=== PATIENT | male | born 1945 | race Caucasian/White ===

== ENCOUNTER 2018-08-23 08:31 | Inpatient (IN) | payer MEDICARE, OTHER ==
--- NOTE | 2018-08-23 08:44 | ED ---
Abdominal Pain/Male - HPI Summary HPI Summary: Pt. is a 72 y.o male who presents to the ER for upper abd. pain x several weeks. Pt. notes pain is worse after eating spicy foods. Pt. states pain increased yesterday and he had a few episodes of vomiting yesterday. Pt. states pain eventually lessened. Pt. denies CP, SOB, diarrhea, constipation, urinary sxs, fever. Past his of HDL, HTN. Sxs are moderate in severity. No current modifying factors. - History of Current Complaint Chief Complaint: EDAbdPain Stated Complaint: RT SIDED ABD PAIN/CHILLS/VOMITING PER PT Time Seen by Provider: 08/23/18 08:39 Hx Obtained From: Patient Pain Intensity: 5 - Allergies/Home Medications Allergies/Adverse Reactions: Allergies Allergy/AdvReac Type Severity Reaction Status Date / Time No Known Allergies Allergy Verified 08/23/18 08:36 Home Medications: Home Medications Omeprazole 20 mg PO DAILY 08/23/18 [History Confirmed 08/23/18] PMH/Surg Hx/FS Hx/Imm Hx Previously Healthy: Yes Endocrine/Hematology History: Denies: Hx Diabetes Cardiovascular History: Reports: Hx Hypertension - ON MEDS Denies: Hx Pacemaker/ICD History: Denies: Hx Renal Disease Sensory History: Denies: Hx Hearing Aid Psychiatric History: Denies: Hx Panic Disorder - Immunization History Date of Tetanus Vaccine: PT STATES UNSURE Date of Influenza Vaccine: NONE Infectious Disease History: No Infectious Disease History: Denies: Traveled Outside the [place] in Last 30 Days - Family History Known Family History: Positive: Non-Contributory - Social History Occupation: Retired Lives: With Family Alcohol Use: Rare Substance Use Type: Reports: None Review of Systems Constitutional: Negative Negative: Fever, Chills Eyes: Negative ENT: Negative Cardiovascular: Negative Negative: Palpitations, Chest Pain Respiratory: Negative Negative: Shortness Of Breath, Cough Positive: Abdominal Pain, Vomiting, Nausea. Negative: Diarrhea Genitourinary: Negative Neurological: Negative All Other Systems Reviewed And Are Negative: Yes Physical Exam Triage Information Reviewed: Yes Vital Signs On Initial Exam: Initial Vitals Temp Pulse Resp BP Pulse Ox 98.2 F 83 16 138/73 96 08/23/18 08:34 08/23/18 08:34 08/23/18 08:34 08/23/18 08:34 08/23/18 08:34 Vital Signs Reviewed: Yes Appearance: Positive: Well-Appearing - Pt. sitting up in bed in NAD. present. Skin: Positive: Warm, Dry Head/Face: Positive: Normal Head/Face Inspection Eyes: Positive: Normal, EOMI, RICHARD Neck: Positive: Supple Respiratory/Lung Sounds: Positive: Clear to Auscultation, Breath Sounds Present Cardiovascular: Positive: Normal, RRR Abdomen Description: Positive: Other: - Abd. is soft soft with diffuse tenderness in all quadrants. Majority of pain to RUQ. Neurological: Positive: Normal, CN Intact II-III Psychiatric: Positive: Affect/Mood Appropriate Diagnostics - Vital Signs Vital Signs Temp Pulse Resp BP Pulse Ox 08/23/18 08:34 98.2 F 83 16 138/73 96 - Laboratory Result Diagrams: 08/23/18 09:06 08/23/18 09:06 Lab Statement: Any lab studies that have been ordered have been reviewed, and results considered in the medical decision making process. Abdominal Pain Male Course/Dx - Course Course Of Treatment: Pt. presenting with upper abd. pain. Afebrile with stable VS. He does have R and L LQ pain as well. Will obtain GB u/s and ct abd./pevlis for further evaluation. Pt. declines pain medication at this time. ECG done at 0857 shows a sinus rhythm of 75bpm, normal axis, normal axis, no STEMI. U/S reading per radiology: IMPRESSION: 1. CHOLELITHIASIS WITHOUT EVIDENCE FOR ACUTE CHOLECYSTITIS. 2. DILATED COMMON BILE DUCT, THIS CAN BE FURTHER EVALUATED WITH AN MRCP STUDY. 3. FINDINGS SUGGESTIVE OF FATTY INFILTRATION OF THE LIVER. CBC elevated WBC of 12. Bilirubin elevated at 4.2, AST 134, ALT 167 , CRP 104. CT abd./pelvis was cancelled. GI paged at [phone]. [phone]: GI page again and case discussed with GI, Dr. Jones, who recommends admission, MRCP, and will proceed with ERCP if indicated. Case discussed with hospitalist, Dr. Chan, who accepts pt. to her service. Pt. given a second liter of NS and Zosyn. - Diagnoses Differential Diagnosis/HQI/PQRI: Gall Bladder Disease, Hepatitis, Ischemic Bowel , Pancreatitis, Peptic Ulcer Disease Provider Diagnoses: Choledocholithiasis Discharge - Sign-Out/Discharge Documenting (check all that apply): Patient Departure Patient Received Moderate/Deep Sedation with Procedure: No - Discharge Plan Condition: Stable Disposition: ADMITTED TO [facility] Referrals: Keny Esquivel MD [Primary Care Provider] - - Billing Disposition and Condition Condition: STABLE Disposition: Admitted to [facility]
--- OUTSIDE RECORDS SUMMARY | 2018-08-23 08:48 | XMS REPORT | Continuity of Care Document ---
:1945 External Reference #:[id number] Author Name Keny Esquivel M.D. Address [address] [place] [address] Care Team Providers Name Role Phone Keny Esquivel M.D. 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 [place] [address] Effective: 2008 Policy Number: [id number] Marcy Wang Jose PayID: [id number] [address] [place] [address] Problems Active Problems Provider Date Essential hypertension Keny Esquivel M.D. Onset: 08/26/2011 Hyperlipidemia Keny Esquivel M.D. Onset: 08/26/2011 Impaired fasting glycaemia Keny Esquivel M.D. Onset: 08/26/2011 Family History Date Family Member(s) Observation Comments Father Black Lung Disease, Smoker Father due to Cancer, () Lung Father Diabetes Mother Hypertension Mother due to "Old Age" () Mother Cancer, throat Children 2 First Daughter Non Contributory Second Daughter Non Contributory Siblings 9 : (age 17 First Brother due to Logging Years) Accident First Sister due to At () - after a Age 6 Months, Cause febrile illness Unknown Second Sister Diabetes Grandchildren 4 Paternal Grandfather due to COPD () Paternal Grandmother Unknown : (age 80 Maternal Grandfather due to [place] Years) Maternal Grandmother Alzheimer's Disease : (age 94 Maternal Grandmother due to Unknown Years) Causes Social History Type Date Description Comments Sex Unknown Order Oldest of 10 Marital Status Lives With Spouse Diet Healthy, Well Balanced Sleep Typically sleeps 7 hours a night Smoke-Free Home is smoke-free Pets 2 cats Pets 1 dog 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 Work Status Currently Working Hand Dominance Right-handed Tobacco Use Start: Unknown Never Smoked Cigarettes ETOH Use Rarely consumes alcohol ETOH Use Rarely consumes wine Recreational Drug Use Never Used Drugs Exercise Type/Frequency Walks daily. About a Sometimes every other mile a day. day. Allergies, Adverse Reactions, Alerts Description No Known Drug Allergies Medications Active Medications SIG Qnty Indications Ordering Provider Date Omeprazole 1 by mouth every 30caps R10.11 Keny Esquivel M.D. 07/29/2018 20mg day Capsules Finasteralicia take 1 tablet by Unknown 11/22/2015 5mg Tablets mouth one time daily Niaspan 1 twice a day 180tabs E78.5 Keny Esquivel M.D. 05/15/2009 500mg Tablets ER Fenofibrate 1 by mouth every 90tabs E78.5 Keny Esquivel M.D. 08/09/2008 160mg day Tablets Lisinopril 1 by mouth every 90tabs I10 Keny Esquivel M.D. 05/12/2008 20mg Tablets day Aspirin 1 PO qd Keny Esquivel M.D. 11/19/2007 81mg Chewtabs Atenolol take one tablet 90tabs I10 Keny Esquivel M.D. 09/06/2001 25mg Tablets by mouth daily History Medications Vitamin D-3 1 by mouth every Unknown 12/13/2013 - 5000Unit day 02/04/2018 Tablets Lisinopril 1 po qd 90tabs 401.9 Keny Esquivel M.D. 04/26/2004 - 10mg 05/12/2008 Tablets Viagra 1/2-1 tab prior 20tabs Camilla Sabillon, 04/18/2003 - 50mg Tablets to sexual M.D. 04/09/2005 activity Prevacid one hs 30caps Lloyd Sawyer, 11/28/2002 - 30mg M.D. 04/27/2004 Capsules Immunizations CPT Code Status Date Vaccine Lot # [id number] Given 06/21/2015 Prevnar-13 Pneumococcal Conjugate Vaccine [id number] Given 06/21/2015 Influenza Vaccine High Dose PF [id number] Given 08/30/2013 Influenza Virus Vaccine, Quadrivalent, 3 Yr > Quad, Preserv Free [id number] Given 06/18/2011 Zoster Vaccine [id number] Given 04/23/2010 Tdap (Adacel) 98986 Given 05/12/2008 Pneumovax 23 (PPSV23) 65+ years or high risk 2 to [id number] 64 year old 48855 Refused 07/29/2018 Influenza Virus Vaccine, Quadrivalent, 3 Yr > Quad , Preserv Free [id number] Refused 12/25/2015 Influenza Virus Vaccine, Quadrivalent, 3 Yr > Quad , Preserv Free Vital Signs Date Vital Result Comment 07/29/2018 9:45am Weight 183.00 lb Weight 83.009 kg BP Systolic 118 mmHg BP Diastolic 58 mmHg Heart Rate 58 /min Body Temperature 98.3 F Respiratory Rate 16 /min 02/04/2018 9:30am Weight 177.00 lb Weight 80.287 kg BP Systolic 128 mmHg BP Diastolic 82 mmHg Heart Rate 54 /min Body Temperature 97.4 F Respiratory Rate 16 /min Height 68.5 inches 5'8.50" BMI (Body Mass Index) 26.5 kg/m2 O2 % BldC Oximetry 97 % 12/31/2016 3:58pm Weight 175.00 lb Weight 79.380 kg BP Systolic 100 mmHg BP Diastolic 65 mmHg Heart Rate 76 /min Height 67.5 inches 5'7.50" BMI (Body Mass Index) 27.0 kg/m2 12/25/2015 1:59pm Weight 179.00 lb Weight 81.194 kg BP Systolic 115 mmHg BP Diastolic 60 mmHg Heart Rate 68 /min 06/21/2015 10:55am Weight 183.00 lb Weight 83.009 kg BP Systolic 112 mmHg BP Diastolic 66 mmHg Heart Rate 64 /min Height 68 inches 5'8" BMI (Body Mass Index) 27.8 kg/m2 07/06/2014 10:37am Weight 187.00 lb Weight 84.823 kg BP Systolic 120 mmHg BP Diastolic 64 mmHg Heart Rate 66 /min Body Temperature 97.9 F Respiratory Rate 16 /min O2 % BldC Oximetry 98 % 12/20/2013 10:25am Weight 182.00 lb Weight 82.555 kg BP Systolic 128 mmHg BP Diastolic 80 mmHg Heart Rate 60 /min Height 68.25 inches 5'8.25" BMI (Body Mass Index) 27.5 kg/m2 11/25/2012 11:02am Weight 180.00 lb Weight 81.648 kg BP Systolic 116 mmHg BP Diastolic 68 mmHg Heart Rate 64 /min 02/25/2012 9:27am Weight 185.00 lb Weight 83.916 kg BP Systolic 134 mmHg BP Diastolic 74 mmHg Heart Rate 76 /min 08/26/2011 9:45am Weight 185.00 lb Weight 83.916 kg BP Systolic 124 mmHg BP Diastolic 78 mmHg Heart Rate 88 /min 02/21/2011 9:39am Weight 182.00 lb Weight 82.555 kg BP Systolic 144 mmHg BP Diastolic 60 mmHg Heart Rate 64 /min 08/22/2010 2:07pm Weight 181.00 lb Weight 82.102 kg BP Systolic 120 mmHg BP Diastolic 60 mmHg Heart Rate 60 /min Height 68.75 inches 5'8.75" BMI (Body Mass Index) 26.9 kg/m2 05/15/2009 8:33am Weight 182.00 lb Weight 82.555 kg BP Systolic 138 mmHg BP Diastolic 70 mmHg Heart Rate 68 /min Height 69.25 inches 5'9.25" BMI (Body Mass Index) 26.7 kg/m2 12/12/2008 10:04am Weight 177.00 lb Weight 80.287 kg BP Systolic 120 mmHg BP Diastolic 82 mmHg Heart Rate 76 /min 08/09/2008 9:51am Weight 176.00 lb Weight 79.834 kg BP Systolic 123 mmHg BP Diastolic 70 mmHg Heart Rate 60 /min 05/12/2008 8:51am Weight 173.00 lb Weight 78.473 kg BP Systolic 150 mmHg repeat 148/68 BP Diastolic 60 mmHg repeat 148/68 Heart Rate 68 /min Height 69 inches 5'9" BMI (Body Mass Index) 25.5 kg/m2 11/19/2007 9:41am Weight 166.00 lb Weight 75.298 kg BP Systolic 130 mmHg BP Diastolic 60 mmHg Heart Rate 50 /min Height 68 inches 5'8" BMI (Body Mass Index) 25.2 kg/m2 05/11/2007 1:04pm Weight 164.00 lb Weight 74.390 kg BP Systolic 116 mmHg BP Diastolic 56 mmHg Heart Rate 56 /min Height 68 inches 5'8" BMI (Body Mass Index) 24.9 kg/m2 04/08/2006 3:40pm Weight 170.00 lb Weight 77.112 kg BP Systolic 130 mmHg BP Diastolic 64 mmHg Heart Rate 62 /min Height 68 inches 5'8" BMI (Body Mass Index) 25.8 kg/m2 04/09/2005 2:23pm Weight 167.00 lb Weight 75.751 kg BP Systolic 122 mmHg BP Diastolic 68 mmHg Heart Rate 80 /min Height 68 inches 5'8" BMI (Body Mass Index) 25.4 kg/m2 06/28/2004 2:34pm Weight 166.00 lb Weight 75.298 kg BP Systolic 130 mmHg BP Diastolic 60 mmHg Heart Rate 80 /min Respiratory Rate 18 /min Height 68 inches 5'8" BMI (Body Mass Index) 25.2 kg/m2 04/26/2004 1:33pm Weight 168.00 lb Weight 76.205 kg BP Systolic 140 mmHg BP Diastolic 80 mmHg Heart Rate 80 /min Respiratory Rate 18 /min Height 68 inches 5'8" BMI (Body Mass Index) 25.5 kg/m2 04/18/2003 12:50pm Weight 172.00 lb Weight 78.019 kg BP Systolic 140 mmHg BP Diastolic 70 mmHg Heart Rate 60 /min Respiratory Rate 18 /min Height 68 inches BMI (Body Mass Index) 26.1 kg/m2 11/28/2002 3:59pm Weight 171.00 lb Weight 77.566 kg BP Systolic 138 mmHg BP Diastolic 74 mmHg Body Temperature 98.2 F 01/21/2002 1:46pm Weight 170.00 lb Weight 77.100 kg BP Systolic 120 mmHg BP Diastolic 70 mmHg Heart Rate 60 /min Respiratory Rate 18 /min Height 67.75 inches BMI (Body Mass Index) 26.0 kg/m2 09/06/2001 3:40pm Weight 170.00 lb BP Systolic 120 mmHg BP Diastolic 80 mmHg Heart Rate 76 /min Respiratory Rate 18 /min Results Test Date Facility Test Result H/L Range Note Laboratory test 06/30/2017 [facility] Surgical SEE RESULT 1, 2 finding [phone] Interface BELOW Order CBC No Diff 07/06/2014 [facility] White Blood 7.6 10^ 3/uL N 4.8-10.8 [phone] Count Red Blood Count 4.40 10^6/uL N 4.0-5.4 Hemoglobin 15.6 g/dL N 14.0-18.0 Hematocrit 44 % N 42-52 Mean Corpuscular Volume 100 fL High 80-94 Mean Corpuscular Hemoglobin 36 pg High 27-31 Mean Corpuscular HGB Conc 36 g/dL N 31-36 Red Cell Distribution Width 13 % N 10.5-15 Platelet Count 197 10^3/uL N 150-450 Mean Platelet Volume 7 um3 Low 7.4-10.4 Comp Metabolic Panel 07/06/2014 [facility] Sodium 135 mmol/L N 133-145 [phone] Potassium 4.1 mmol/L N 3.5-5.0 Chloride 105 mmol/L N 101-111 Co2 Carbon Dioxide 24 mmol/L N 22-32 Anion Gap 6 mmol/L N 2-11 Glucose 117 mg/dL High 70-100 Blood Urea Nitrogen 29 mg/dL High 6-24 Creatinine 1.20 mg/dL High 0.67-1.17 BUN/Creatinine Ratio 24.2 High 8-20 Calcium 9.8 mg/dL N 8.6-10.3 Total Protein 6.8 g/dL N 6.4-8.9 Albumin 4.7 g/dL N 3.2-5.2 Globulin 2.1 g/dL N 2-4 Albumin/Globulin Ratio 2.2 N 1-3 Total Bilirubin 0.40 mg/dL N 0.2-1.0 Alkaline Phosphatase 12 U/L Low 34-104 Alt 28 U/L N 7-52 Ast 20 U/L N 13-39 Egfr Non- 60.6 N >60 Egfr 77.9 N >60 3 CBC Auto Diff 05/08/2013 [facility] White Blood 8.1 10^3/uL 4.8-10.8 [phone] Count Red Blood Count 4.18 10^6/uL 4.0-5.4 Hemoglobin 14.2 g/dL 14.0-18.0 Hematocrit 40 % Low 42-52 Mean Corpuscular Volume 96 fL High 80-94 Mean Corpuscular Hemoglobin 34 pg High 27-31 Mean Corpuscular HGB Conc 36 g/dL 31-36 Red Cell Distribution Width 13 % 10.5-15 Platelet Count 175 10^3/uL 150-450 Mean Platelet Volume 6 um3 Low 7.4-10.4 Abs Neutrophils 4.7 10^3/uL 1.5-7.7 Abs Lymphocytes 2.4 10^3/uL 1.0-4.8 Abs Monocytes 0.7 10^3/uL 0-0.8 Abs Eosinophils 0.3 10^3/uL 0-0.6 Abs Basophils 0.1 10^3/uL 0-0.2 Abs Nucleated RBC 0 10^3/uL Granulocyte % 57.4 % 38-83 Lymphocyte % 30.0 % 25-47 Monocyte % 8.2 % 1-9 Eosinophil % 3.5 % 0-6 Basophil % 0.9 % 0-2 Nucleated Red Blood Cells % 0 Comp Metabolic Panel 05/08/2013 [facility] Sodium 138 mmol/L 133-145 [phone] Potassium 3.9 mmol/L 3.7-5.6 Chloride 105 mmol/L 101-111 Co2 Carbon Dioxide 27 mmol/L 22-32 Anion Gap 6 mmol/L 2-11 Glucose 136 mg/dL High 70-100 Blood Urea Nitrogen 22 mg/dL 6-24 Creatinine 1.22 mg/dL High 0.67-1.17 BUN/Creatinine Ratio 18.0 8-20 Calcium 9.0 mg/dL 8.6-10.3 Total Protein 6.4 g/dL 6.4-8.9 Albumin 4.3 g/dL 3.2-5.2 Globulin 2.1 g/dL 2-4 Albumin/Globulin Ratio 2.0 1-3 Total Bilirubin 0.40 mg/dL 0.2-1.0 Alkaline Phosphatase 13 U/L Low 34-104 Alt 21 U/L 7-52 Ast 16 U/L 13-39 Egfr Non- 59.6 >60 Egfr 76.7 >60 4 Laboratory test 05/08/2013 [facility] Creatine Kinase 60 U/L 10-223 finding [phone] Troponin I < 0.01 ng/mL <0.03 5 PSA Free And 11/25/2012 [facility] PSA Total 6.7 ng/ mL Abnormal <=4.5 Total [phone] PSA Free 1.5 ng/mL PSA Free/Total 0.22 ratio 6 Comp Metabolic Panel 02/12/2011 [facility] Sodium 140 mmol/L 135-145 [phone] Potassium 4.2 mmol/L 3.5-5.0 Chloride 104 mmol/L 101-111 Co2 (Carbon Dioxide) 25.0 mmol/L 22-32 Anion Gap 11.0 mmol/L 2-11 7 Glucose 98 mg/dL 70-100 BUN 19 mg/dL 6-24 Creatinine 1.2 mg/dL 0.50-1.40 One Over Creatinine 0.83 BUN/Creatinine Ratio 15.8 8-20 Calcium 9.5 mg/dL 8.1-9.9 Total Protein 6.9 GM/DL 6.2-8.1 Albumin 4.6 GM/DL 3.2-5.2 Globulin 2.3 GM/DL 2-4 Albumin/Globulin Ratio 2.0 1-3 Bilirubin Total 0.7 mg/dL 0.4-1.5 8 Alkaline Phosphatase 17 U/L Low 39-117 Alt (SGPT) 36 U/L 17-63 Ast (Sgot) 25 U/L 12-42 eGFR Non- 61.1 > 60 eGFR 78.6 > 60 9 Lipid Profile 02/12/2011 [facility] Triglyceride 213 mg/dL High 40-200 (Trig/Chol/HDL) [phone] Cholesterol 185 mg/dL Less Than 200 10 High Density Lipoprotein 29 mg/dL Low 40-60 11 Cholesterol/HDL Ratio 6.38 AVERAGE High 1-4.97 Low Density Lipoprotein 113 mg/dL High Less Than 100 12 Laboratory test 02/12/2011 [facility] Hemoglobin A1c 5.0 % Less Than 13 finding [phone] 6.0 Urine DIP 08/22/2010 In House Lab Leukocytes neg Neg (607)- - Urine Nitrites neg Neg Urine pH 5 5-6 Total Protein, Urine neg Neg Urine Glucose norm Norm Urine Ketones neg Neg Urobilinogen norm Norm Urine Bilirubin neg Neg Urine Blood neg Neg Specific [place] n/a Low 1.01-1.02 Comp Metabolic Panel 08/02/2010 [facility] Sodium 138 mmol/L 135-145 [phone] Potassium 4.7 mmol/L 3.5-5.0 Chloride 105 mmol/L 101-111 Co2 (Carbon Dioxide) 28.0 mmol/L 22-32 Anion Gap 5.0 mmol/L 2-11 14 Glucose 103 mg/dL High 70-100 BUN 15 mg/dL 6-24 Creatinine 1.30 mg/dL 0.50-1.40 One Over Creatinine 0.70 BUN/Creatinine Ratio 11.5 8-20 Calcium 9.5 mg/dL 8.1-9.9 Total Protein 6.7 GM/DL 6.2-8.1 Albumin 4.3 GM/DL 3.2-5.2 Globulin 2.4 GM/DL 2-4 Albumin/Globulin Ratio 1.8 1-3 Bilirubin Total 0.8 mg/dL 0.4-1.5 15 Alkaline Phosphatase 14 U/L Low 39-117 Alt (SGPT) 36 U/L 17-63 Ast (Sgot) 28 U/L 12-42 eGFR Non- 55.9 > 60 eGFR 71.9 > 60 16 Lipid Profile 08/02/2010 [facility] Triglyceride 223 mg/dL High 40-200 (Trig/Chol/HDL) [phone] Cholesterol 177 mg/dL Less Than 200 17 High Density Lipoprotein 29 mg/dL Low 40-60 18 Cholesterol/HDL Ratio 6.10 AVERAGE High 1-4.97 Low Density Lipoprotein 103 mg/dL High Less Than 100 19 Urine DIP 05/15/2009 In House Lab Leukocytes NEG Neg (607)- - Urine Nitrites NEG Neg Urine pH 5 5-6 Total Protein, Urine NEG Neg Urine Glucose NORM Norm Urine Ketones NEG Neg Urobilinogen NORM Norm Urine Bilirubin NEG Neg Urine Blood NEG Neg Specific [place] N/A Low 1.01-1.02 Laboratory test 05/08/2009 [facility] PSA Screening 3.31 NG/ML 0-4 20 finding [phone] CBC With 05/08/2009 [facility] White Blood 6.3 CUMM 4.8-10.8 Electronic Diff [phone] Count Red Cell Count 4.49 CUMM Low 4.6-6.2 Hemoglobin 15.7 g/dL 14.0-18.0 Hematocrit 43 % 42-52 Mean Corpuscular Volume 96 um3 High 80-94 Mean Corpuscular Hemoglob 35 pg High 27-31 Mean Corpuscular HGB Cone 36 g/dL 32-36 Redcell Distribution WDTH 13 % 10.5-15 Platelet Count 188 CUMM 150-450 Mean Platelet Volume 6.3 um3 Low 7.4-10.4 Gran % 56.5 % 38-83 Lymph % 31.6 % 25-47 Mononuclear % 8.0 % 1-9 Eosinophil % 3.1 % 0-6 Basophil % 0.8 % 0-2 Abs Lymphs 2.0 1.0-4.8 Abs Mononuclear 0.5 0-0.8 Absolute Neutrophil Count 3.6 1.5-7.7 Abs Eosinophils 0.2 0-0.6 Abs Basophils 0.1 0-0.2 21 Lipid Profile 05/08/2009 [facility] Triglyceride 161 mg/dL 40-200 (Trig/Chol/HDL) [phone] Cholesterol 165 mg/dL Less Than 200 22 High Density Lipoprotein 21 mg/dL Low 40-60 23 Cholesterol/HDL Ratio 7.86 AVERAGE High 1-4.97 Low Density Lipoprotein 112 mg/dL High Less Than 100 24 Comp Metabolic Panel 05/08/2009 [facility] Sodium 137 mmol/L 135-145 [phone] Potassium 4.3 mmol/L 3.5-5.0 Chloride 105 mmol/L 101-111 Co2 (Carbon Dioxide) 26.0 mmol/L 22-32 Anion Gap 6.0 mmol/L 2-11 25 Glucose 103 mg/dL High 70-100 26 BUN 16 mg/dL 6-24 Creatinine 1.20 mg/dL 0.50-1.40 One Over Creatinine 0.80 BUN/Creatinine Ratio 13.3 8-20 Calcium 9.3 mg/dL 8.1-9.9 27 Total Protein 6.0 GM/DL Low 6.2-8.1 Albumin 4.4 GM/DL 3.2-5.2 Globulin 1.6 GM/DL Low 2-4 Albumin/Globulin Ratio 2.8 1-3 Bilirubin Total 0.8 mg/dL 0.4-1.5 28 Alkaline Phosphatase 11 U/L Low 39-117 Alt (SGPT) 59 U/L 17-63 Ast (Sgot) 31 U/L 12-42 eGFR Non- 65.4 > 60 eGFR 79.2 > 60 29 Statin 12/05/2008 [facility] Ast (Sgot) 32 U/L 12- 42 [phone] Alt (SGPT) 52 U/L 17-63 Lipid Profile 12/05/2008 [facility] Triglyceride 169 mg/dL 40-200 (Trig/Chol/HDL) [phone] Cholesterol 166 mg/dL Less Than 200 30 High Density Lipoprotein 24 mg/dL Low 40-60 31 Cholesterol/HDL Ratio 6.92 AVERAGE High 1-4.97 Low Density Lipoprotein 108 mg/dL High Less Than 100 32 Laboratory test 12/05/2008 [facility] PSA Screening 3.04 NG/ML 0-4 33 finding [phone] Lipid Profile 08/07/2008 [facility] Triglyceride 335 mg/dL High 40-200 (Trig/Chol/HDL) [phone] Cholesterol 191 mg/dL Less Than 200 34 High Density Lipoprotein 25 mg/dL Low 40-60 35 Cholesterol/HDL Ratio 7.64 AVERAGE High 1-4.97 Low Density Lipoprotein 99 mg/dL Less Than 100 36 PSA Free And 08/07/2008 [facility] Total PSA 3.9 ng/ mL Abnormal 0.0-3.8 Total [phone] Free PSA 0.7 ng/mL () Free PSA/PSA Ratio 0.18 () 37 CBC With 05/12/2008 [facility] White Blood 6.7 CUMM 4.8-10.8 Electronic Diff [phone] Count Red Cell Count 4.50 CUMM Low 4.6-6.2 Hemoglobin 15.4 g/dL 14.0-18.0 Hematocrit 42 % 42-52 Mean Corpuscular Volume 94 um3 80-94 Mean Corpuscular Hemoglob 34 pg High 27-31 Mean Corpuscular HGB Cone 36 g/dL 32-36 Redcell Distribution WDTH 13 % 10.5-15 Platelet Count 193 CUMM 150-450 Mean Platelet Volume 6.2 um3 Low 7.4-10.4 Gran % 56.8 % 38-83 Lymph % 31.1 % 25-47 Mononuclear % 7.7 % 1-9 Eosinophil % 3.5 % 0-6 Basophil % 0.9 % 0-2 Abs Lymphs 2.1 1.0-4.8 Abs Mononuclear 0.5 0-0.8 Absolute Neutrophil Count 3.8 1.5-7.7 Abs Eosinophils 0.2 0-0.6 Abs Basophils 0.1 0-0.2 38 Comp Metabolic Panel 05/12/2008 [facility] Sodium 136 mmol/L 135-145 [phone] Potassium 4.7 mmol/L 3.5-5.0 Chloride 105 mmol/L 101-111 Co2 (Carbon Dioxide) 28.0 mmol/L 22-32 Anion Gap 3.0 mmol/L 2-11 39 Glucose 92 mg/dL 70-100 40 BUN 14 mg/dL 6-24 Creatinine 1.00 mg/dL 0.50-1.40 One Over Creatinine 1.00 BUN/Creatinine Ratio 14.0 8-20 Calcium 9.0 mg/dL 8.1-9.9 41 Total Protein 6.3 GM/DL 6.2-8.1 Albumin 4.0 GM/DL 3.2-5.2 Globulin 2.3 GM/DL 2-4 Albumin/Globulin Ratio 1.7 1-3 Bilirubin Total 0.7 mg/dL 0.4-1.5 Alkaline Phosphatase 27 U/L Low 39-117 Alt (SGPT) 34 U/L 17-63 Ast (Sgot) 24 U/L 12-42 Lipid Profile 05/12/2008 [facility] Triglyceride 294 mg/dL High 40-200 (Trig/Chol/HDL) [phone] Cholesterol 189 mg/dL Less Than 200 42 High Density Lipoprotein 26 mg/dL Low 40-60 43 Cholesterol/HDL Ratio 7.27 AVERAGE High 1-4.97 Low Density Lipoprotein 104 mg/dL High Less Than 100 44 Laboratory test 05/12/2008 [facility] PSA Screening 4.37 NG/ML High 0-4 45 finding [phone] Urine DIP 05/12/2008 In House Lab Leukocytes neg Neg (607)- - Urine Nitrites neg Neg Urine pH 5 5-6 Total Protein, Urine neg Neg Urine Glucose norm Norm Urine Ketones neg Neg Urobilinogen norm Norm Urine Bilirubin neg Neg Urine Blood neg Neg Specific [place] n/a Low 1.01-1.02 Laboratory test finding 09/01/2006 [facility] PSA Screening 2.95 (607)- - Urine DIP 04/26/2004 In House Lab Leukocytes NEG Neg (607)- - Urine Nitrites NEG Neg Urine pH 6 5-6 Total Protein, Urine NEG Neg Urine Glucose NORM Norm Urine Ketones NEG Neg Urobolinogen NORM Norm Urine Bilirubin NEG Neg Urine Blood NEG Neg Urine DIP 04/18/2003 In House Lab Leukocytes NEG Neg (607)- - Urine Nitrites NEG Neg Urine pH 5 5-6 Total Protein, Urine NEG Neg Urine Glucose NORM Norm Urine Ketones NEG Neg Urobolinogen NORM Norm Urine Bilirubin NEG Neg Urine Blood NEG Neg Laboratory test 01/21/2002 [facility] PSA Screening 2.1 NG/ML 0-4 46 finding [phone] 1 [id number] 2 SEE RESULT BELOW Name: MARIA R GARCIA : [address]: Darnell Jones MD Acct: [id number] Unit: [id number] AGE: 71 Location: [facility] Re06/30/17 SEX: M Status: DEP REF SPEC: [id number] VISHAL: 06/30/171058 [facility] DR: Darnell Jones MD REQ: [id number] RECD: 06/30/[id number] STATUS: CUAUHTEMOC MADRID DR: Keny Esquivel MD _ ORDERED: LEVEL 4 COMMENTS: [id number] FINAL DIAGNOSIS Colon, at 15 cm, biopsy: -- Hyperplastic polyps (2). GROSS DESCRIPTION The specimen is received in formalin labeled, Colon Polyps at 15 cm, and consists of two serrano-pink irregular to polypoid soft tissue fragments averaging 0.3 x 0.2 x 0.2 cm which are submitted entirely in one cassette. Signed (signature on file) Ese Patton MD 02/07 1021 END OF REPORT DEPARTMENT OF PATHOLOGY, [address] [place] [address] Alfredo Salinas M.D. Director [facility] # [id number] 3 Because ethnic data is not always readily available, this report includes an eGFR for both -Americans and non- Americans. The National Kidney Disease Education Program (NKDEP) does not endorse the use of the MDRD equation for patients that are not between the ages of 18 and 70, are , have extremes of body size, muscle mass, or nutritional status, or are non- or non-. According to the National Kidney Foundation, irrespective of diagnosis, the stage of the disease is based on the level of kidney function: Stage Description GFR(mL/min/1.73 m(2)) 1 Kidney damage with normal or decreased GFR 90 2 Kidney damage with mild decrease in GFR 60-89 3 Moderate decrease in GFR 30-59 4 Severe decrease in GFR 15-29 5 Kidney failure <15 (or dialysis) 4 Because ethnic data is not always readily available, this report includes an eGFR for both -Americans and non- Americans. The National Kidney Disease Education Program (NKDEP) does not endorse the use of the MDRD equation for patients that are not between the ages of 18 and 70, are , have extremes of body size, muscle mass, or nutritional status, or are non- or non-. According to the National Kidney Foundation, irrespective of diagnosis, the stage of the disease is based on the level of kidney function: Stage Description GFR(mL/min/1.73 m(2)) 1 Kidney damage with normal or decreased GFR 90 2 Kidney damage with mild decrease in GFR 60-89 3 Moderate decrease in GFR 30-59 4 Severe decrease in GFR 15-29 5 Kidney failure <15 (or dialysis) 5 Reference Range and Interpretation: TnI (ng/mL) Interpretation Less Than 0.03 ng/mL Not supportive of diagnosis of IL 0.03 - 0.50 ng/mL Indeterminate: suggest serial studies if clinically indicated. Greater than 0.5 ng/mL Consistent with diagnosis of IL 6 When total PSA is in the range of 4.0-10.0 ng/mL, a free PSA / Total PSA ratio of < or=0.10 indicates 49 to 65 % risk of prostate cancer depending on age; and a free PSA / total PSA ratio of > 0.25 indicates a 9 to 16% risk of prostate cancer depending on age. The testing method is an electrochemiluminescence assay manufactured by [employer] and performed on the Modular or Zachery system. Values obtained with different assay methods or kits may be different and cannot be used interchangeably. Test results cannot be interpreted as absolute evidence for the presence or absence of malignant disease. Test Performed by: [place] [address] Aircraft Accessories Mechanic: Guanakito Mccullough III, M.D. 7 Anion gap measurement may be of limited value in the presence of any alkalosis, especially in a combined acid base disorder. . 8 A metabolite of Naproxen, O-desmethylnaproxen, has been shown to interfere with the Jendrassik-Deuce method for measuring total bilirubin. Samples from patients who have taken Naproxen have shown spurious elevation in total bilirubin levels. 9 Because ethnic data is not always readily available, this report includes an eGFR for both -Americans and non- Americans. The National Kidney Disease Education Program (NKDEP) does not endorse the use of the MDRD equation for patients that are not between the ages of 18 and 70, are , have extremes of body size, muscle mass, or nutritional status, or are non- or non-. According to the National Kidney Foundation, irrespective of diagnosis, the stage of the disease is based on the level of kidney function: Stage Description GFR(mL/min/1.73 m(2)) 1 Kidney damage with normal or decreased GFR 90 2 Kidney damage with mild decrease in GFR 60-89 3 Moderate decrease in GFR 30-59 4 Severe decrease in GFR 15-29 5 Kidney failure <15 (or dialysis) 10 CHOLESTEROL INTERPRETATION: Desirable: Less than 200 MG/DL Borderline-High Risk: 200-239 MG/DL High-Risk: 240 MG/DL and over 11 HDL INTERPRETATION: Undesirable: High Risk: Less than 40 MG/DL Desirable: Low Risk: Greater than 60 MG/DL 12 LDL INTERPRETATION: Low Risk Optimal Level: LDL Less than 100 MG/DL Near or Above Optimal: LDL 100-129 MG/DL Borderline High Risk: LDL 130-159 MG/DL High Risk: LDL 160-189 MG/DL Very High Risk: LDL Greater than 189 MG/DL 13 THERAPEUTIC TARGET FOR THE TREATMENT OF DIABETES MELLITUS PATIENTS IS <7% HBA1C, AND IN SELECTIVE PATIENTS <6.0%. PLEASE REFER TO [place] DIABETIC CARE GUIDELINES FOR FURTHER INFORMATION. 14 Anion gap measurement may be of limited value in the presence of any alkalosis, especially in a combined acid base disorder. . 15 A metabolite of Naproxen, O-desmethylnaproxen, has been shown to interfere with the Jendrassik-Deuce method for measuring total bilirubin. Samples from patients who have taken Naproxen have shown spurious elevation in total bilirubin levels. 16 Because ethnic data is not always readily available, this report includes an eGFR for both -Americans and non- Americans. The National Kidney Disease Education Program (NKDEP) does not endorse the use of the MDRD equation for patients that are not between the ages of 18 and 70, are , have extremes of body size, muscle mass, or nutritional status, or are non- or non-. According to the National Kidney Foundation, irrespective of diagnosis, the stage of the disease is based on the level of kidney function: Stage Description GFR(mL/min/1.73 m(2)) 1 Kidney damage with normal or decreased GFR 90 2 Kidney damage with mild decrease in GFR 60-89 3 Moderate decrease in GFR 30-59 4 Severe decrease in GFR 15-29 5 Kidney failure <15 (or dialysis) 17 CHOLESTEROL INTERPRETATION: Desirable: Less than 200 MG/DL Borderline-High Risk: 200-239 MG/DL High-Risk: 240 MG/DL and over 18 HDL INTERPRETATION: Undesirable: High Risk: Less than 40 MG/DL Desirable: Low Risk: Greater than 60 MG/DL 19 LDL INTERPRETATION: Low Risk Optimal Level: LDL Less than 100 MG/DL Near or Above Optimal: LDL 100-129 MG/DL Borderline High Risk: LDL 130-159 MG/DL High Risk: LDL 160-189 MG/DL Very High Risk: LDL Greater than 189 MG/DL 20 * SERUM LEVELS OF PSA MEASURED USING THE Aligo ACCESS HYBRITECH IMMUNOASSAY SHOULD NOT BE INTERPRETED ABSOLUTE EVIDENCE OF THE PRESENCE OR ABSENCE OF DISEASE. THE PSA VALUE SHOULD BE USED IN CONJUNCTION WITH OTHER PERTINENT CLINICAL DIAGNOSTIC PROCEDURES. 21 H H Check Failed 22 CHOLESTEROL INTERPRETATION: Desirable: Less than 200 MG/DL Borderline-High Risk: 200-239 MG/DL High-Risk: 240 MG/DL and over 23 HDL INTERPRETATION: Undesirable: High Risk: Less than 40 MG/DL Desirable: Low Risk: Greater than 60 MG/DL 24 LDL INTERPRETATION: Low Risk Optimal Level: LDL Less than 100 MG/DL Near or Above Optimal: LDL 100-129 MG/DL Borderline High Risk: LDL 130-159 MG/DL High Risk: LDL 160-189 MG/DL Very High Risk: LDL Greater than 189 MG/DL 25 Anion gap measurement may be of limited value in the presence of any alkalosis, especially in a combined acid base disorder. . 26 Note change in reference range as of 11/11/07. The change was based on recommendations from the [place] [employer]. 27 Please note change in reference range effective 07 . 28 A metabolite of Naproxen, O-desmethylnaproxen, has been shown to interfere with the Jendrassik-[place] method for measuring total bilirubin. Samples from patients who have taken Naproxen have shown spurious elevation in total bilirubin levels. 29 Because ethnic data is not always readily available, this report includes an eGFR for both -Americans and non- Americans. The National Kidney Disease Education Program (NKDEP) does not endorse the use of the MDRD equation for patients that are not between the ages of 18 and 70, are , have extremes of body size, muscle mass, or nutritional status, or are non- or non-. According to the National Kidney Foundation, irrespective of diagnosis, the stage of the disease is based on the level of kidney function: Stage Description GFR(mL/min/1.73 m(2)) 1 Kidney damage with normal or decreased GFR 90 2 Kidney damage with mild decrease in GFR 60-89 3 Moderate decrease in GFR 30-59 4 Severe decrease in GFR 15-29 5 Kidney failure <15 (or dialysis) 30 CHOLESTEROL INTERPRETATION: Desirable: Less than 200 MG/DL Borderline-High Risk: 200-239 MG/DL High-Risk: 240 MG/DL and over 31 HDL INTERPRETATION: Undesirable: High Risk: Less than 40 MG/DL Desirable: Low Risk: Greater than 60 MG/DL 32 LDL INTERPRETATION: Low Risk Optimal Level: LDL Less than 100 MG/DL Near or Above Optimal: LDL 100-129 MG/DL Borderline High Risk: LDL 130-159 MG/DL High Risk: LDL 160-189 MG/DL Very High Risk: LDL Greater than 189 MG/DL 33 * SERUM LEVELS OF PSA MEASURED USING THE Aligo ACCESS HYBRITECH IMMUNOASSAY SHOULD NOT BE INTERPRETED ABSOLUTE EVIDENCE OF THE PRESENCE OR ABSENCE OF DISEASE. THE PSA VALUE SHOULD BE USED IN CONJUNCTION WITH OTHER PERTINENT CLINICAL DIAGNOSTIC PROCEDURES. 34 CHOLESTEROL INTERPRETATION: Desirable: Less than 200 MG/DL Borderline-High Risk: 200-239 MG/DL High-Risk: 240 MG/DL and over 35 HDL INTERPRETATION: Undesirable: High Risk: Less than 40 MG/DL Desirable: Low Risk: Greater than 60 MG/DL 36 LDL INTERPRETATION: Low Risk Optimal Level: LDL Less than 100 MG/DL Near or Above Optimal: LDL 100-129 MG/DL Borderline High Risk: LDL 130-159 MG/DL High Risk: LDL 160-189 MG/DL Very High Risk: LDL Greater than 189 MG/DL 37 About 25% of asymptomatic men older than 50 years and PSA values of 4-10 ng/mL have prostate cancer, compared with about 12% for those with PSA values of 2.0 to 3.9 ng/mL. Free PSA can help classify these men into subgroups with higher or lower cancer rates: Free/Total Ratio Cancer Rate PSA 4-10 ng/mL <0.10 >40% >0.25 <10% PSA 2.0-3.9 ng/mL <0.10 >30% >0.18 <10% The testing method is an immunoenzymatic assay manufactured by [employer] and performed on the [employer] DXI 800. Values obtained with different assay methods or kits may be different and cannot be used interchangeably. Test results cannot be interpreted as absolute evidence for the presence or absence of malignant disease. Test Performed by: [facility] Pathology [address] [place] [id number] [employer] Access[employer] Mechanic: Guanakito Mccullough III, M.D. 38 H H Check Failed 39 Anion gap measurement may be of limited value in the presence of any alkalosis, especially in a combined acid base disorder. . 40 Note change in reference range as of 11/11/07. The change was based on recommendations from the [place] [employer]. 41 Please note change in reference range effective 07 . 42 CHOLESTEROL INTERPRETATION: Desirable: Less than 200 MG/DL Borderline-High Risk: 200-239 MG/DL High-Risk: 240 MG/DL and over 43 HDL INTERPRETATION: Undesirable: High Risk: Less than 40 MG/DL Desirable: Low Risk: Greater than 60 MG/DL 44 LDL INTERPRETATION: Low Risk Optimal Level: LDL Less than 100 MG/DL Near or Above Optimal: LDL 100-129 MG/DL Borderline High Risk: LDL 130-159 MG/DL High Risk: LDL 160-189 MG/DL Very High Risk: LDL Greater than 189 MG/DL 45 * SERUM LEVELS OF PSA MEASURED USING THE CALLI GIANNA ACCESS HYBRITECH IMMUNOASSAY SHOULD NOT BE INTERPRETED ABSOLUTE EVIDENCE OF THE PRESENCE OR ABSENCE OF DISEASE. THE PSA VALUE SHOULD BE USED IN CONJUNCTION WITH OTHER PERTINENT CLINICAL DIAGNOSTIC PROCEDURES. 46 * SERUM LEVELS OF PSA MEASURED USING THE CALLI GIANNA ACCESS HYBRITECH IMMUNOASSAY SHOULD NOT BE INTERPRETED ABSOLUTE EVIDENCE OF THE PRESENCE OR ABSENCE OF DISEASE. THE PSA VALUE SHOULD BE USED IN CONJUNCTION WITH OTHER PERTINENT CLINICAL DIAGNOSTIC PROCEDURES. Procedures Date Code Description Status 06/30/2017 [id number] Colonoscopy Completed 07/25/2014 [id number] Wearable ECG Monitor/Report W/Visual Superimposition Completed Scanning 07/06/2014 15506 EKG, at Least 12 Leads w/Interpretation and Report Completed 08/22/2010 [id number] EKG, at Least 12 Leads w/Interpretation and Report Completed 05/12/2008 [id number] EKG, at Least 12 Leads w/Interpretation and Report Completed 04/08/2006 20525 EKG, at Least 12 Leads w/Interpretation and Report Completed 04/18/2003 27517 EKG, at Least 12 Leads w/Interpretation and Report Completed Encounters Type Date Location Provider Dx Diagnosis Office Visit 02/04/2018 Main Office Keny Esquivel M.D. Z00.00 Encntr for general 9:30a adult medical exam w/o abnormal findings I10 Essential (primary) hypertension E78.5 Hyperlipidemia, unspecified R73.01 Impaired fasting glucose R10.11 Right upper quadrant pain Office Visit 12/31/2016 4:00p Main Office Keny Esquivel M.D. I10 Essential (primary) hypertension E78.5 Hyperlipidemia, unspecified R73.01 Impaired fasting glucose R97.20 Elevated prostate specific antigen [PSA] Office Visit 12/25/2015 2:00p Main Office Keny Esquivel M.D. I10 Essential (primary) hypertension E78.5 Hyperlipidemia, unspecified R73.01 Impaired fasting glucose Office Visit 06/21/2015 10:45a Main Office Keny Esquivel M.D. I10 Essential (primary) hypertension E78.5 Hyperlipidemia, unspecified R97.2 Elevated prostate specific antigen [PSA] R73.01 Impaired fasting glucose Z23 Encounter for immunization Office Visit 07/06/2014 10:45a Main Office Keny Esquivel 368.12 Visual Loss M.DTyesha Transient Office Visit 12/20/2013 10:30a Main Office Keny Esquivel 401.9 Hypertension Unspec M.DTyesha 272.4 Hyperlipidemia Other Unspec 790.21 Impaired Fasting Glucose 790.93 Elevated Prostate Specific Antigen (PSA) Office Visit 11/25/2012 11:00a Main Office Keny Esquivel M.D. 401.9 Hypertension Unspec 272.4 Hyperlipidemia Other Unspec 790.21 Impaired Fasting Glucose 790.93 Elevated Prostate Specific Antigen (PSA) Office Visit 02/25/2012 9:30a Main Office Keny Esquivel M.D. 401.9 Hypertension Unspec 272.4 Hyperlipidemia Other Unspec 790.21 Impaired Fasting Glucose 790.93 Elevated Prostate Specific Antigen (PSA) Office Visit 08/26/2011 9:45a Main Office Keny Esquivel M.D. 401.9 Hypertension Unspec 272.4 Hyperlipidemia Other Unspec 790.21 Impaired Fasting Glucose 790.93 Elevated Prostate Specific Antigen (PSA) Office Visit 02/21/2011 9:45a Main Office Keny Esquivel M.D. 401.9 Hypertension Unspec 790.21 Impaired Fasting Glucose 272.4 Hyperlipidemia Other Unspec Office Visit 08/22/2010 2:15p Main Office Keny Esquivel M.D. V70.0 Examination General Medical Routine AT Health Care Facility 401.9 Hypertension Unspec 272.4 Hyperlipidemia Other Unspec 790.21 Impaired Fasting Glucose Office Visit 05/15/2009 8:45a Main Office Keny Esquivel M.D. V70.0 Examination General Medical Routine AT [facility] 272.4 Hyperlipidemia Other Unspec 401.9 Hypertension Unspec 790.21 Impaired Fasting Glucose Office Visit 12/12/2008 10:00a Main Office Keny Esquivel 272.4 Hyperlipidemia Other M.D. Unspec 401.9 Hypertension Unspec 790.6 Abnormal Blood Chemistry Other Office Visit 08/09/2008 10:00a Main Office Keny Esquivel M.D. 401.9 Hypertension Unspec 272.4 Hyperlipidemia Other Unspec 790.6 Abnormal Blood Chemistry Other Office Visit 05/12/2008 9:00a Main Office Keny Esquivel M.D. V70.0 Examination General Medical Routine AT [facility] 401.9 Hypertension Unspec 272.4 Hyperlipidemia Other Unspec V03.82 Streptococcus Pneumoniae Vaccination Spec Other Office Visit 11/19/2007 9:45a Main Office Keny Esquivel M.D. 401.9 Hypertension Unspec 272.4 Hyperlipidemia Other Unspec Office Visit 05/11/2007 1:15p Main Office Keny Esquivel M.D. V70.0 Examination General Medical Routine AT [facility] 401.9 Hypertension Unspec 272.4 Hyperlipidemia Other Unspec Office Visit 04/08/2006 3:45p Main Office Keny Esquivel M.D. 401.9 Hypertension Unspec Office Visit 04/09/2005 2:30p Main Office Serge Grant, 401.9 Hypertension Unspec M.D. Office Visit 06/28/2004 2:45p Main Office Camilla Sabillon 401.9 Hypertension Unspec M.D. 272.4 Hyperlipidemia Other Unspec Office Visit 04/26/2004 1:30p Main Office Camilla Sabillon 401.9 Hypertension Unspec M.D. V70.0 Examination General Medical Routine AT [facility] Office Visit 04/18/2003 Main Office Camilla Sabillon, 535.50 Gastritis & 1:00p M.D. Gastroduodenitis Unspec W/O Hemorrhage 401.9 Hypertension Unspec V70.0 Examination General Medical Routine AT Health Care Facility Office Visit 11/28/2002 Main Office Lloyd Sawyer, 535.50 Gastritis & 3:45p M.D. Gastroduodenitis Unspec W/O Hemorrhage Office Visit 01/21/2002 Main Office Camilla Sabillon, V70.0 Examination General 1:45p M.D. Medical Routine AT Health Care Facility 401.9 Hypertension Unspec 724.2 Lumbago 302.79 Psychosexual Dysfunction Other Spec Office Visit 09/06/2001 3:30p Main Office Camilla Sabillon, 401.9 Hypertension Unspec M.D. 302.79 Psychosexual Dysfunction Other Spec Plan of Treatment Future Appointment(s):09/16/2018 3:30 pm - Keny Esquivel M.D. at Main Nnwdmo2902/09 8:45 am - Keny Esquivel M.D. at Main Ofdobd9207/29/2018 - Keny Esquivel M.D.R10.11 Right upper quadrant painNew Medication:Omeprazole 20 mg - 1 by mouth every dayComments:Suspect GERD.Trial of PPI.Has some nocturnal symptoms suggesting reflux so he may benefit from longer term treatmentFollow up:6 weeks.Recommendations:For now stop the aspirin. Start omeprazole once a day. ( Prilosec)
[2018-08-23] MEDS ORDERED: NS 0.9% 1000 ML** 1,000 ML IV ONE ×2 (09:02→11:15)
[2018-08-23 09:13] LABS: ABS Lymphocytes 0.4 10^3/ul (1.0-4.8); ABS Monocytes 0.5 10^3/ul (0-0.8); ABS Neutrophils 11.6 10^3/ul (1.5-7.7); Hematocrit 41 % (42-52); Hemoglobin 14.4 g/dL (14.0-18.0); Lymphocyte % 3.4 %; Mean Corpuscular HGB Conc 35 g/dL (31-36); Mean Corpuscular Hemoglobin 34 pg (27-31); Mean Corpuscular Volume 97 fL (80-94); Mean Platelet Volume 6.1 fL (7.4-10.4); Platelet Count 136 10^3/uL (150-450); Red Blood Count 4.28 10^6 /uL (4.18-5.48); Red Cell Distribution Width 13 % (10.5-15); White Blood Count 12.6 10^3/uL (3.5-10.8)
[2018-08-23 09:31] LABS: Albumin 4.3 g/dL (3.2-5.2); Albumin/Globulin Ratio 1.8 (1-3); BUN/Creatinine Ratio 18.9 (8-20); C Reactive Protein 104.48 mg/L (<8.01); Calcium 9.7 mg/dL (8.6-10.3); EGFR African American 59.2 (>60); EGFR Non-African American 48.9 (>60); Globulin 2.4 g/dL (2-4); Total Bilirubin 4.2 mg/dL (0.2-1.0); Total Protein 6.7 g/dL (6.4-8.9)
[2018-08-23] MEDS ORDERED: ED Piperacillin/Tazobac 3.375 3.375 GM/100 ML PREMIX.SET IVPB ONE (10:55)
[2018-08-23] MEDS ORDERED: Morphine 4 MG/ML VIAL (1 ml) 4 MG/ML VIAL IV ONE (11:11)
[2018-08-23] MEDS ORDERED: Ondansetron INJ* 2 MG/ML VIAL IV ONE (11:11)
[2018-08-23] MEDS ORDERED: Zosyn 3.375 GM IV - ED ONCE IVPB ONE ×2 (12:00)
[2018-08-23] MEDS ORDERED: Ondansetron INJ* 2 MG/ML VIAL IV PRN (13:28)
[2018-08-23] MEDS ORDERED: Acetaminophen SUPP* 650 MG SUPP PR ONE (13:34)
[2018-08-23] MEDS ORDERED: Zosyn per Pharmacy* NOTE FOLLOW UP SCH (14:00)
--- NOTE | 2018-08-23 15:30 | HP ---
CC: Dr. Esquivel; Dr. Jones * HISTORY AND PHYSICAL: DATE OF ADMISSION: 08/23/18 PROVIDER: Obie Knott NP PRIMARY CARE PROVIDER: Dr. Esquivel. ATTENDING PHYSICIAN WHILE IN THE HOSPITAL: Dr. Irena Chan * (dictated by Obie Knott NP). CHIEF COMPLAINT: Abdominal pain. HISTORY OF PRESENT ILLNESS: Mr. Garcia is a 72-year-old male with a past medical history significant for hypertension, hyperlipidemia and GERD, who presented to the emergency room with complaints of worsening abdominal pain. The patient reports that he has had right upper quadrant abdominal pain x1.5 months that has progressively gotten worse. He states over the past week, the pain has become worse and yesterday it was at its worse. He says that some- times eating spicy foods makes the pain worse. He does report that yesterday he developed feeling hot and had chills for approximately 4 hours, unable to get warm. He did report that he started vomiting yesterday. He reports the pain is a constant ache, sometimes in the right upper quadrant, sometimes at its worse is sharp, nothing makes it better. While in the emergency room, the patient had routine lab work drawn. He was found to have leukocytosis with a white count of 12.6 and elevated liver functions with a T bilirubin of 4.20, ASTs were 134, ALTs were 169, and alkaline phosphatase of 21. He had a C-reactive protein of 104.48. Due to these findings and dilation of his common bile duct, we were asked to see and evaluate him for admission. PAST MEDICAL HISTORY: Significant for hypertension, hyperlipidemia, and GERD. PAST SURGICAL HISTORY: None. HOME MEDICATIONS: Include: 1. Omeprazole 20 mg p.o. daily. 2. Niacin ER 500 mg p.o. daily. 3. Lisinopril 20 mg p.o. daily. 4. Fenofibrate 150 mg p.o. daily. 5. Finasteride 5 mg p.o. daily. 6. Atenolol 25 mg p.o. daily. ALLERGIES: No known drug allergies. FAMILY HISTORY: Brother with a history of hypertension. Diabetes with his brother, sister, and father. Mother had esophageal cancer. Father with prostate and lung cancer. SOCIAL HISTORY: The patient denies any tobacco. He does report occasional alcohol use. Denies any illicit drug use. He is . He lives with his . Surrogate decision maker in the event he is unable to make his own decisions is his . He is a full code. REVIEW OF SYSTEMS: The patient does report fever and chills. Denies unintended weight loss. Denies chest pain or edema, cough, hemoptysis or shortness of breath. The patient does report nausea and vomiting. Denies any diarrhea. Does report right upper quadrant abdominal pain. Denies any gross hematuria or dysuria, focal weakness or sensory loss, visual complaints, dysphagia, arthralgias, myalgias, rashes, lesions or open sores, psychosis or anxiety. PHYSICAL EXAMINATION GENERAL: At this time, Mr. Garcia is a 72-year-old male. He is resting comfortably on the stretcher in the emergency room. His face is flushed. VITAL SIGNS: Blood pressure 136/84, heart rate 97, respirations are 22, O2 saturation 96%, temperature is 98.4. HEENT: Head is atraumatic, normocephalic. Eyes: EOMs are intact. Sclerae anicteric and not pale. Oral mucosa appeared to be moist. NECK: Supple. LUNGS: Clear to auscultation bilaterally. No wheezes, rales, or rhonchi. CARDIAC: S1, S2. Regular rate and rhythm. No murmurs, rubs, or gallops. He is tachycardic. ABDOMEN: Soft with mild tenderness noted to the right upper quadrant with palpation. Bowel sounds are active x4. EXTREMITIES: He is able to move all 4 extremities with 5/5 strength. There is no clubbing or cyanosis. No edema. SKIN: Intact. DIAGNOSTIC STUDIES/LAB DATA: WBCs are 12.6, RBCs 4.28, hemoglobin 14.4, hematocrit 41, platelet count 136. Sodium 137, potassium 4.0, chloride 104, carbon dioxide was 23, anion gap was 10, BUN was 27, creatinine 1.43, glucose was 139. Total bilirubin was 4.20, ASTs were 134, ALTs were 169, alkaline phosphatase was 21. Troponin 0.00. C-reactive protein 104.48. Lipase is 34. Urine is currently pending. Gallbladder ultrasound, radiologist's impression: Cholelithiasis without evidence of acute cholecystitis, dilated common bile duct can be further evaluated with an MRCP study, findings suggestive of fatty infiltration of the liver. He had an electrocardiogram, which showed sinus rhythm at a rate of 75, QTc is 424. ASSESSMENT AND PLAN: Mr. Garcia is a 72-year-old gentleman with a past medical history significant for hypertension, hyperlipidemia and gastroesophageal reflux disease, who presented to the emergency room with abdominal pain worsening over the past week, at its worse started yesterday with fever and chills. The patient does meet sepsis criteria. He will be admitted inpatient for: 1. Sepsis. I suspect this is related to acute cholangitis. I have consulted GI, who will see and evaluate the patient. The patient does have a fever of 103.2. He is tachycardic. He has a mildly elevated heart rate at 95. He has a white count of 12.6. Given the fever, elevated white count and increased heart rate with suspected source of common bile duct stone, he is meeting sepsis criteria. The patient did receive fluid bolusing in the emergency room. I will continue normal saline at 125 cc an hour. He did receive Zosyn in the emergency room. We will continue Zosyn as per pharmacy protocol. I have an MRCP ordered. 2. Hypertension. I am going to hold his lisinopril at this time. I will continue his 25 mg p.o. daily. 3. Gastroesophageal reflux disease. I will continue his omeprazole 20 mg p.o. daily. 4. FEN: He is n.p.o. 5. Code status: He is a full code. 6. DVT prophylaxis: I will place him on SCDs as the patient will likely be going for an MRCP. TIME SPENT: Time spent on this admission was approximately 60 minutes, greater than half that time was spent at the bedside reviewing events leading thus far to his hospitalization, performing physical exam, and reviewing my plan of care. I have discussed this with my attending, Dr. Irena Chan; she is in agreement with my plan. OBIE KNOTT, [place] SUPERINTENDENT [id number]/[facility] #: [id number] JUAQUIN
[2018-08-23] MEDS: NS 0.9% 1000 ML** 1,000 ML IV SCH (16:37)
[2018-08-23] MEDS: ZOSYN 3.375 GM Q8H per EXTENDED INFUSION IVPB SCH ×4 (17:09→23:51)
--- NOTE | 2018-08-23 17:35 | CONS ---
CONSULTATION REPORT: DATE OF CONSULT: 08/23/18 REQUESTING PROVIDER: Anjali Knott NP. INDICATION: Abdominal pain. NARRATIVE: Mr. Garcia is a very pleasant 72-year-old gentleman who has a history of GERD, hypertension, and hyperlipidemia. He came to the emergency room today with complaints of worsening right upper quadrant abdominal pain. He states it has been present for approximately 6 weeks. It does not radiate anywhere, stays right in the right upper quadrant. Eating some foods does make it better, especially very hot, spicy foods. He does believe he had chills yesterday and then began to vomit. The pain is there all the time. It really does not get any better. It can get worse. Again, no radiation. He denies any yellowing of his eyes or his urine. Denies any injury. He denies any NSAIDs. The patient was found to have increased LFTs in the emergency room and was admitted to the hospital. PAST MEDICAL HISTORY: Please see the HPI. PAST SURGICAL HISTORY: None. MEDICATIONS: Upon admission include: 1. Omeprazole. 2. Niacin. 3. Lisinopril. 4. Finasteride. 5. Atenolol. ALLERGIES: None. FAMILY HISTORY: Hypertension, esophageal cancer, prostate and lung cancer. SOCIAL HISTORY: Occasional alcohol. No tobacco. REVIEW OF SYSTEMS: Twelve systems were reviewed and other than that mentioned in the HPI were unremarkable. PHYSICAL EXAM: Temperature is 101.6 with a T max of 103.2, blood pressure is 112/55, pulse is 90, O2 sat is 93%. General: Well-appearing male lying flat in bed, alert, oriented, pleasant, fluent. HEENT: Mucous membranes are moist. Sclerae are icteric. Conjunctivae are not pale. Heart: Regular rate and rhythm. Lungs: Clear to auscultation. Abdomen: Obese. Positive bowel sounds , soft. He is tender in the right upper quadrant, nowhere else, but he has had pain medication. Skin is warm and dry. DIAGNOSTIC STUDIES/LAB DATA: Labs of note, white count is 12.6, hemoglobin 14.4 , platelets of 136,000. BUN 27, creatinine is 1.43. Total bilirubin is 4.2. AST is 134, ALT is 169, alkaline phosphatase is 21, C-reactive protein 104. He does have a right upper quadrant ultrasound which shows cholelithiasis without evidence for acute cholecystitis, dilated common bile duct, fatty infiltration in the liver. He had an MRCP which did not show any choledocholithiasis; however, did show cholelithiasis with intrahepatic and extrahepatic duct distention, a small pancreatic cyst, and a complex hepatic cyst. ASSESSMENT AND PLAN: This is a 72-year-old gentleman with increased liver function test with no evidence of choledocholithiasis on the MRCP. He is now febrile with an elevated white count. Possibilities would include acalculous cholecystitis, potentially a passed gallstone. At this point, the primary team is going to get the surgeons involved. He is already on antibiotics. We will continue to follow along very closely. [id number]/[facility] #: [id number] JUAQUIN
--- NOTE | 2018-08-23 19:14 | CONS ---
CC: [facility]; Dr. Esquivel in [place] * CONSULTATION REPORT: DATE OF CONSULT: 08/23/18 REFERRING PROVIDER: Anjali Knott, hospitalist nurse practitioner. REASON FOR CONSULT: Abdominal pain with gallstones. HISTORY OF PRESENT ILLNESS: Mr. Micheal Garcia is a 72-year-old gentleman with a past medical history significant for hypertension, hyperlipidemia, and gastroesophageal reflux disease, who presented to the emergency room this morning of 24 hours of worsening epigastric and right upper quadrant abdominal discomfort. This was associated with some shakes and chills and a low-grade fever. He states over the past month or so, he has been having some right upper quadrant abdominal pain that has been constant and somewhat nagging. He did see his primary care provider earlier in the month but at that time, no workup was done. He described the pain as fairly constant, not really worse with eating. He had noted no jaundice or change in bowel habits including acholic stools. He had no darkening of his urine. He has had no back discomfort. Yesterday, he became quite ill feeling and vomited. When the pain persisted through the night, he presented to the emergency room today. In the emergency room, he was noted to have a white blood cell count of 12,600, his total bilirubin of 4.2, and AST and ALT of 134 and 169, alkaline phosphatase of 21. His C-reactive protein was 104. Lipase was unremarkable. Lactic acid of 0.9. Troponins were 0. He underwent an ultrasound of his gallbladder. This showed cholelithiasis without evidence of acute cholecystitis. There was a dilated common bile duct up to 1.2 cm. Fatty liver was noted. There were no noted stones in the bile duct. He subsequently underwent an MRCP. I did review these images. This once again shows no evidence of common bile duct stones. There was cholelithiasis noted but without evidence of cholecystitis. The common bile duct measured 1.2 cm in diameter. There were also noted several small cystic pancreatic lesions up to 0.9 cm in size. The patient has been admitted to the hospitalist service and surgical consultation was obtained. He was also seen by GI earlier in the day but was not felt that he needed an ERCP. PAST MEDICAL HISTORY: 1. Hypertension. 2. Hypercholesterolemia. 3. Gastroesophageal reflux disease. PAST SURGICAL HISTORY: None. MEDICATIONS: Include: 1. Omeprazole. 2. Niacin. 3. Lisinopril. 4. Fenofibrate. 5. Finasteride. 6. Atenolol. ALLERGIES: He has no known drug allergies. FAMILY HISTORY: A brother with hypertension. Diabetes in his brother, sister, and father. His mother had esophageal cancer. His father had prostate and lung cancer. SOCIAL HISTORY: He denies use of tobacco, drinks alcohol on a social basis. He denies illicit drug abuse. He is , lives with his . His surrogate decision maker is his . He is a full code. REVIEW OF SYSTEMS: The patient denies jaundice or other constitutional change. He does have fever and chills. There has been no unintended weight loss. Otherwise per above. PHYSICAL EXAM: Temperature 99.1, pulse 87, blood pressure 108/44. He had a temperature up to 101.6 in the emergency room. In general, he is a well- developed, well-nourished male, appears to be in no apparent distress. He is awake, alert, and quite pleasant. His sclerae are nonicteric. Oral mucosa is slightly dry. His lungs were clear to auscultation with normal respiratory effort. Heart was regular rate and rhythm without murmurs, rubs, or gallops. Abdomen was soft, nondistended. He has no prior surgical incisions or hernias. He has a very mild tenderness on very deep palpation in the epigastrium and right upper quadrant, but there is no mass, rebound, guarding, or peritoneal irritation. Psychiatric: He is awake, alert, and oriented x3. He has normal judgment and insight. IMPRESSION: Epigastric right upper quadrant abdominal pain with cholelithiasis. He was noted to have mild dilation of his extrahepatic bile duct , but both an ultrasound and an MRCP did not show findings consistent with choledocholithiasis. Likewise, there does not appear to be clearcut acute cholecystitis. He did have fever, shakes, and chills; and with his history of a pain over a month, he may have had a common bile duct stone which became more impacted yesterday thus causing an acute cholangitis and it appears that most likely the stone has passed prior to the MRCP being done. The patient has been admitted to the hospitalist service and started on IV Zosyn. Blood cultures have been obtained. He will be started on IV fluids and right now, he has been keeping n.p.o. PLAN/RECOMMENDATION: At this point, I would recommend we trend his liver panel with repeat in the morning. If these numbers are coming down, I would recommend we proceed with a cholecystectomy in the next 24 to 48 hours after he has been treated with at least 24 hours of IV antibiotics as well as operating room availability. If his numbers are increasing by tomorrow, then I would reconsult Gastroenterology for another evaluation as to the cause of his laboratory abnormalities and symptoms. I discussed all of the above with the patient and his at the bedside. We will follow him closely with you. [id number]/CPS #: [id number] JUAQUIN
[2018-08-23] MEDS ORDERED: Acetaminophen SUPP* 650 MG SUPP PR PRN (19:28)
[2018-08-23] MEDS: Morphine INJ* 2 MG/ML 1 ML SYRINGE (TWO MG - NEW SYRINGE VERSION) IV PRN (20:21)
[2018-08-23 21:46] LABS: Urine Appearance Clear; Urine Bilirubin Negative (Negative); Urine Blood Negative (Negative); Urine Color Amber; Urine Glucose Negative (Negative); Urine Ketones Negative (Negative); Urine Nitrite Negative (Negative); Urine Protein Negative (Negative); Urine Specific Gravity 1.028 (1.010-1.030); Urine Urobilinogen Positive (Negative)
[2018-08-24 07:04] LABS: Albumin 3.2 g/dL (3.2-5.2); Albumin/Globulin Ratio 1.5 (1-3); Globulin 2.1 g/dL (2-4); Indirect Bilirubin 1.3 mg/dL (0.3-1.0); Total Bilirubin 3.8 mg/dL (0.2-1.0); Total Protein 5.3 g/dL (6.4-8.9)
[2018-08-24] MEDS: Pantoprazole TAB * 40 MG TAB PO SCH (09:27)
[2018-08-24] MEDS: ZOSYN 3.375 GM Q8H per EXTENDED INFUSION IVPB SCH ×4 (09:27→17:11)
[2018-08-24] MEDS: Finasteride TAB* 5 MG PO SCH (09:27)
[2018-08-24] MEDS: Atenolol TAB* 25 MG PO SCH (09:27)
[2018-08-24 09:44] LABS: Calcium 8.1 mg/dL (8.6-10.3); Potassium 3.7 mmol/L (3.5-5.0)
[2018-08-24 09:50] LABS: BUN/Creatinine Ratio 16.7 (8-20); EGFR African American 58.7 (>60); EGFR Non-African American 48.5 (>60)
--- NOTE | 2018-08-24 11:41 | PN ---
Progress Note - Progress Note Date of Service: 08/24/18 Note: Surgery Progress: S: Feels better. Still a bit of pain. No N/V. Sonido clears. Urine still somewhat dark, but beam dyer than last pm. O: tmax 103.2 yesterday Vital Signs - 8 hr 08/24/18 08/24/18 03:45 07:52 Temperature 98.2 F Pulse Rate 92 Respiratory 19 18 Rate Blood Pressure 117/44 (mmHg) O2 Sat by Pulse 94 Oximetry Intake and Output Last 24 Hours 08/22/18 08/23/18 08/24/18 08/25/18 06:59 06:59 06:59 06:59 Intake Total 2100 Balance 2100 Weight 181 lb 8 oz Intake: IV Fluids 2100 Oral 0 Other: Estimated Void Medium # Bowel Movements 0 # Voids 1 Gen: appears comfortable; NAD Heart: reg Lungs: clear ant and L base; sl decreased at R base Abd: mildly distended? Tympanitic. +BS. Soft; mild tenderness RUQ. Remainder nontender. Labs: Laboratory Tests 08/23/18 08/24/18 09:06 06:31 WBC 12.6 H Creatinine 1.44 H Total Bilirubin 3.80 H Direct Bilirubin 2.50 H Indirect Bilirubin 1.3 H AST 62 H ALT 104 H blood cx: SOURCE: BLOOD,VENO SPDESC: ORDERED: Blood Cult COMMENTS: Verbal to [id number] by ELANA at 0622 on 08/24/18. Results read back accurately. Procedure Result Reported Site Aerobic Culture Bottle Preliminary 08/24/18- 1130 ML Aerobic Bottle Gram Stain Gram Negative Bacilli Organism 1 KLEBSIELLA PNEUMONIAE Please refer to [id number] culture AEROBIC bottle for sensitivity testing. Anaerobic Culture Bottle Preliminary 08/24/18- 1128 ML Anaerobic Btl Gram Stain Gram Negative Bacilli * ML - Main Lab A: cholelithiasis w/ likely cholangitis from passed CBD stone, w/ pos BCx's, on Zosyn, and clinically improving P: cont Zosyn; clears liqs. Discussed w/ Drs. Kilpatrick and Zulma. Will repeat labs and BCx's tomorrow am. Poss OR for lap hernan Thurs. .
[2018-08-24 12:47] LABS: ABS Lymphocytes 0.4 10^3/ul (1.0-4.8); ABS Monocytes 0.3 10^3/ul (0-0.8); ABS Neutrophils 3.8 10^3/ul (1.5-7.7); Eosinophil % 0.3 %; Hematocrit 33 % (42-52); Hemoglobin 11.6 g/dL (14.0-18.0); Lymphocyte % 8.1 %; Mean Corpuscular HGB Conc 36 g/dL (31-36); Mean Corpuscular Hemoglobin 35 pg (27-31); Mean Corpuscular Volume 98 fL (80-94); Red Blood Count 3.32 10^6 /uL (4.18-5.48); Red Cell Distribution Width 13 % (10.5-15); White Blood Count 4.5 10^3/uL (3.5-10.8)
[2018-08-24] MEDS: NS 0.9% 1000 ML** 1,000 ML IV SCH ×2 (12:51→21:19)
[2018-08-24 14:38] LABS: Mean Platelet Volume 6.4 fL (7.4-10.4); Platelet Count 85 10^3/uL (150-450)
[2018-08-24] MEDS: Acetaminophen TAB* 325 MG PO PRN (14:51)
--- NOTE | 2018-08-24 15:08 | PN ---
Subjective Date of Service: 08/24/18 Interval History: HOSPITALIST PROGRESS NOTE Patient seen and examined at bedside. Care reviewed and d/w Dot Wheatley RN. He feels better today. Still has mild RUQ discomfort, but improved. Denies N/V/D , appetite is returning, would like to eat something. Family History: Unchanged from Admission Social History: Unchanged from Admission Past Medical History: Unchanged from Admission Objective Active Medications: Acetaminophen (Tylenol Supp*) 650 mg [place] Q6H PRN PRN Reason: FEVER/PAIN Acetaminophen (Tylenol Tab*) 650 mg PO Q6H PRN PRN Reason: pain/fever Last Admin: 08/24/18 14:51 Dose: 650 mg Atenolol (Tenormin Tab*) 25 mg PO DAILY [facility] Last Admin: 08/24/18 09:27 Dose: 25 mg Finasteride (Proscar Tab*) 5 mg PO DAILY [facility] Last Admin: 08/24/18 09:27 Dose: 5 mg Sodium Chloride (Ns 0.9% 1000 Ml) 1,000 mls @ 125 mls/hr IV PER RATE [facility] Last Admin: 08/24/18 12:51 Dose: 125 mls/hr Piperacillin Sod/Tazobactam (Sod 3.375 gm/ Sodium Chloride) 100 mls @ 25 mls/ hr IVPB Q8H [facility] Last Admin: 08/24/18 09:27 Dose: 25 mls/hr Morphine Sulfate (Morphine Inj (Syringe))*) 2 mg IV Q4H PRN PRN Reason: PAIN - MILD Last Admin: 08/23/18 20:21 Dose: 2 mg Ondansetron HCl (Zofran Inj*) 4 mg IV Q6H PRN PRN Reason: NAUSEA/VOMITING Last Admin: 08/24/18 13:41 Dose: 4 mg Pantoprazole Sodium (Protonix Tab*) 40 mg PO DAILY [facility] Last Admin: 08/24/18 09:27 Dose: 40 mg Pharmacy Consult (Zosyn Per Pharmacy*) 1 note FOLLOW UP .ZOSYN PER PHARMACY [facility] Vital Signs - 8 hr 08/24/18 08/24/18 07:52 11:15 Pulse Rate 71 Respiratory 18 18 Rate Blood Pressure 124/53 (mmHg) O2 Sat by Pulse 95 Oximetry Oxygen Devices in Use Now: None Appearance: Pleasent gentleman lying in bed in NAD. Eyes: No Scleral Icterus Ears/Nose/Mouth/Throat: Mucous Membranes Moist Neck: Trachea Midline Respiratory: Symmetrical Chest Expansion and Respiratory Effort, Clear to Auscultation Cardiovascular: RRR - Normal S1 and S2 Abdominal: - - Soft, obese, mild RUQ tenderness, NG, NR, BS+ and active Extremities: No Edema Neurological: Alert and Oriented x 3, NL Muscle Strength and Tone Result Diagrams: 08/24/18 11:55 08/24/18 06:31 Microbiology and Other Data: Microbiology 08/23/18 11:49 Aerobic Blood Culture - Preliminary Blood Venous Klebsiella Pneumoniae Anaerobic Blood Culture - Preliminary 08/23/18 11:49 Aerobic Blood Culture - Preliminary Blood Venous Klebsiella Pneumoniae Anaerobic Blood Culture - Preliminary Klebsiella Pneumoniae Assess/Plan/Problems-Billing Assessment: Mr Garcia is a 72yo M with PMH of HTN, HLD, GERD, CKD stage 3, who presented to ED with c/o abdominal pain; found to have cholelithiasis and cholangitis. - Patient Problems (1) Sepsis Comment: - Met sepsis criteria with fever and tachycardia. - Source is Klebsiella septicemia secondary to cholangitis. (2) Cholangitis Comment: - GB US showed cholelithiasis with dilated CBD up to 1.2cm. - MRCP showed no choledocolithiasis, but intra and extrahepatic ductal dilatation is present. I suspect he likely passed a stone; pancreatic lesion less likely - will check CA 19-9 for now. If elevated will pursue [address] abdome; if not, will likely proceed with cholecystectomy and can consider [address] as outpatient. - GI and Surgery input appreciated. - LFTs are trending down and clinically he seems to be improving. - Continue Zosyn. 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 - EKG shows no acute ischemic changes. - RCRI is 0, predicting 0.4-0.5% risk of cardiac complications. - Optimized for surgery, but would wait until blood cultures are negative to pursue surgery. (3) Septicemia due to Klebsiella pneumoniae Comment: - All 4 bottles blood culture growing Klebsiella pneumoniae - d/w ID - agree with Zosyn and waiting for clear blood cultures prior to surgery. Would not recommend echocardiogram. (4) Thrombocytopenia Comment: - Suspect secondary to sepsis - continue to monitor. (5) HTN (hypertension) Comment: - BP controlled - continue Atenolol. (6) DVT prophylaxis Comment: - SCDs for now, monitor platelets. (7) Full code status Status and Disposition: Inpatient.
[2018-08-24] MEDS ORDERED: Enoxaparin(*) 40 MG/0.4 ML SYR SUBCUT SCH (16:00)
[2018-08-25] MEDS: ZOSYN 3.375 GM Q8H per EXTENDED INFUSION IVPB SCH ×8 (00:16→23:53)
[2018-08-25] MEDS: Morphine INJ* 2 MG/ML 1 ML SYRINGE (TWO MG - NEW SYRINGE VERSION) IV PRN ×2 (01:53→23:50)
[2018-08-25] MEDS: NS 0.9% 1000 ML** 1,000 ML IV SCH ×3 (06:16→23:53)
[2018-08-25 07:59] LABS: ABS Lymphocytes 0.4 10^3/ul (1.0-4.8); ABS Monocytes 0.4 10^3/ul (0-0.8); ABS Neutrophils 3.1 10^3/ul (1.5-7.7); Eosinophil % 1.2 %; Hematocrit 34 % (42-52); Hemoglobin 11.9 g/dL (14.0-18.0); Lymphocyte % 11.2 %; Mean Corpuscular HGB Conc 35 g/dL (31-36); Mean Corpuscular Hemoglobin 34 pg (27-31); Mean Corpuscular Volume 97 fL (80-94); Mean Platelet Volume 6.5 fL (7.4-10.4); Nucleated Red Blood Cells % 0.1; Platelet Count 78 10^3/uL (150-450); Red Blood Count 3.45 10^6 /uL (4.18-5.48); Red Cell Distribution Width 13 % (10.5-15); White Blood Count 3.9 10^3/uL (3.5-10.8)
[2018-08-25 08:12] LABS: Albumin 3.2 g/dL (3.2-5.2); Albumin/Globulin Ratio 1.5 (1-3); BUN/Creatinine Ratio 17.1 (8-20); Calcium 8.3 mg/dL (8.6-10.3); EGFR African American 70.4 (>60); EGFR Non-African American 58.2 (>60); Globulin 2.1 g/dL (2-4); Potassium 3.9 mmol/L (3.5-5.0); Total Bilirubin 2.5 mg/dL (0.2-1.0); Total Protein 5.3 g/dL (6.4-8.9)
[2018-08-25] MEDS: Atenolol TAB* 25 MG PO SCH (08:32)
[2018-08-25] MEDS: Finasteride TAB* 5 MG PO SCH (08:32)
[2018-08-25] MEDS: Pantoprazole TAB * 40 MG TAB PO SCH (08:33)
--- NOTE | 2018-08-25 11:47 | PN ---
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 this am [] Objective: Laboratory Last Values WBC 3.9 10^3/uL (3.5-10.8) 08/25/18 07:23 RBC 3.45 10^6 /uL (4.18-5.48) L 08/25/18 07:23 Hgb 11.9 g/dL (14.0-18.0) L 08/25/18 07:23 Hct 34 % (42-52) L 08/25/18 07:23 MCV 97 fL (80-94) H 08/25/18 07:23 MCH 34 pg (27-31) H 08/25/18 07:23 MCHC 35 g/dL (31-36) 08/25/18 07:23 RDW 13 % (10.5-15) 08/25/18 07:23 Plt Count 78 10^3/uL (150-450) L 08/25/18 07:23 MPV 6.5 fL (7.4-10.4) L 08/25/18 07:23 Neut % (Auto) 78.1 % 08/25/18 07:23 Lymph % (Auto) 11.2 % 08/25/18 07:23 Parker % (Auto) 9.1 % 08/25/18 07:23 Eos % (Auto) 1.2 % 08/25/18 07:23 Baso % (Auto) 0.4 % 08/25/18 07:23 Absolute Neuts (auto) 3.1 10^3/ul (1.5-7.7) 08/25/18 07:23 Absolute Lymphs (auto) 0.4 10^3/ul (1.0-4.8) L 08/25/18 07:23 Absolute Monos (auto) 0.4 10^3/ul (0-0.8) 08/25/18 07:23 Absolute Eos (auto) 0.0 10^3/ul (0-0.6) 08/25/18 07:23 Absolute Basos (auto) 0.0 10^3/ul (0-0.2) 08/25/18 07:23 Absolute Nucleated RBC 0.0 10^3/ul 08/25/18 07:23 Nucleated RBC % 0.1 08/25/18 07:23 Hem Pathologist Commnt 08/24/18 11:55 Sodium 139 mmol/L (135-145) 08/25/18 07:23 Potassium 3.9 mmol/L (3.5-5.0) 08/25/18 07:23 Chloride 109 mmol/L (101-111) 08/25/18 07:23 Carbon Dioxide 22 mmol/L (22-32) 08/25/18 07:23 Anion Gap 8 mmol/L (2-11) 08/25/18 07:23 BUN 21 mg/dL (6-24) 08/25/18 07:23 Creatinine 1.23 mg/dL (0.67-1.17) H 08/25/18 07:23 Est GFR ( Amer) 70.4 (>60) 08/25/18 07:23 Est GFR (Non-Af Amer) 58.2 (>60) 08/25/18 07:23 BUN/Creatinine Ratio 17.1 (8-20) 08/25/18 07:23 Glucose 89 mg/dL (70-100) 08/25/18 07:23 Lactic Acid 0.5 mmol/L (0.5-2.0) 08/23/18 16:28 Calcium 8.3 mg/dL (8.6-10.3) L 08/25/18 07:23 Total Bilirubin 2.50 mg/dL (0.2-1.0) H 08/25/18 07:23 Direct Bilirubin 2.50 mg/dL (0.03-0.18) H 08/24/18 06:31 Indirect Bilirubin 1.3 mg/dL (0.3-1.0) H 08/24/18 06:31 AST 76 U/L (13-39) H 08/25/18 07:23 ALT 119 U/L (7-52) H 08/25/18 07:23 Alkaline Phosphatase 15 U/L (34-104) L 08/25/18 07:23 Troponin I 0.00 ng/mL (<0.04) 08/23/18 09:06 C-Reactive Protein 104.48 mg/L (<8.01) H 08/23/18 09:06 Total Protein 5.3 g/dL (6.4-8.9) L 08/25/18 07:23 Albumin 3.2 g/dL (3.2-5.2) 08/25/18 07:23 Globulin 2.1 g/dL (2-4) 08/25/18 07:23 Albumin/Globulin Ratio 1.5 (1-3) 08/25/18 07:23 Lipase 34 U/L (11.0-82.0) 08/23/18 09:06 Urine Color [place] 08/23/18 21:28 Urine Appearance Clear 08/23/18 21:28 Urine pH 5.0 (5-9) 08/23/18 21:28 Ur Specific [place] 1.028 (1.010-1.030) 08/23/18 21:28 Urine Protein Negative (Negative) 08/23/18 21:28 Urine Ketones Negative (Negative) 08/23/18 21:28 Urine Blood Negative (Negative) 08/23/18 21:28 Urine Nitrate Negative (Negative) 08/23/18 21:28 Urine Bilirubin Negative (Negative) 08/23/18 21:28 Urine Urobilinogen Positive (Negative) A 08/23/18 21:28 Ur Leukocyte Esterase Negative (Negative) 08/23/18 21:28 Urine Glucose Negative (Negative) 08/23/18 21:28 Vital Signs Temp 97.5 F 08/25/18 07:50 Pulse 55 08/25/18 07:50 Resp 22 08/25/18 07:50 BP 131/58 08/25/18 07:50 Pulse Ox 93 08/25/18 07:50 Intake & Output 08/24/18 08/25/18 08/25/18 18:59 06:59 18:59 Intake Total 2295 2393 Balance 2295 2393 Intake: IV Fluids 1980 2282 NS (0.9%) 678 1293 IVPB 244 110 ABX - ZOSYN 134 110 Oral 70 0 Other: # Bowel Movements 0 1 # Voids 1 []lungs:clear bilat;heart:RRR,no murmur;abd:+bs,large,firm,minimal RUQ tenderness on deep palpation,no guarding;small nontender umbilical hernia Assessment:hospital day #2 cholangitis,cholelithiasis;+BC for Klebsiella Pneumoniae;improving on abx,LFTS trending down,WBCs wnl,afebrile,minimal pain [] Plan:discussed with Dr Grier,cont IV abx;repeat BC today,await neg BC before proceeding with lap hernan possibly 08/26/18;will keep NPO after MN,allow clears today;plan discussed with patient and family at bedside;Dr Maya updated []
[2018-08-25] MEDS: Acetaminophen TAB* 325 MG PO PRN (17:49)
--- NOTE | 2018-08-25 17:54 | PN ---
Subjective Date of Service: 08/25/18 Interval History: HOSPITALIST PROGRESS NOTE Patient seen and examined at bedside. Care reviewed and d/w Dot Wheatley RN. He feels better today. RUQ discomfort is less intense, tolerating clear liquid diet well, + BM today. Family History: Unchanged from Admission Social History: Unchanged from Admission Past Medical History: Unchanged from Admission Objective Active Medications: Acetaminophen (Tylenol Supp*) 650 mg [place] Q6H PRN PRN Reason: FEVER/PAIN Acetaminophen (Tylenol Tab*) 650 mg PO Q6H PRN PRN Reason: pain/fever Last Admin: 08/24/18 14:51 Dose: 650 mg Atenolol (Tenormin Tab*) 25 mg PO DAILY [facility] Last Admin: 08/25/18 08:32 Dose: 25 mg Finasteride (Proscar Tab*) 5 mg PO DAILY [facility] Last Admin: 08/25/18 08:32 Dose: 5 mg Sodium Chloride (Ns 0.9% 1000 Ml) 1,000 mls @ 125 mls/hr IV PER RATE [facility] Last Admin: 08/25/18 14:15 Dose: 125 mls/hr Piperacillin Sod/Tazobactam (Sod 3.375 gm/ Sodium Chloride) 100 mls @ 25 mls/ hr IVPB Q8H [facility] Last Admin: 08/25/18 17:46 Dose: 25 mls/hr Morphine Sulfate (Morphine Inj (Syringe))*) 2 mg IV Q4H PRN PRN Reason: PAIN - MILD Last Admin: 08/25/18 01:53 Dose: 2 mg Ondansetron HCl (Zofran Inj*) 4 mg IV Q6H PRN PRN Reason: NAUSEA/VOMITING Last Admin: 08/24/18 13:41 Dose: 4 mg Pantoprazole Sodium (Protonix Tab*) 40 mg PO DAILY [facility] Last Admin: 08/25/18 08:33 Dose: 40 mg Pharmacy Consult (Zosyn Per Pharmacy*) 1 note FOLLOW UP .ZOSYN PER PHARMACY [facility] Vital Signs - 8 hr 08/25/18 11:42 Temperature 97.6 F Pulse Rate 49 Respiratory 18 Rate Blood Pressure 127/56 (mmHg) O2 Sat by Pulse 96 Oximetry Oxygen Devices in Use Now: None Appearance: Pleasant gentleman sitting up in a recliner in NAD. Eyes: No Scleral Icterus Ears/Nose/Mouth/Throat: Mucous Membranes Moist Neck: Trachea Midline Respiratory: Symmetrical Chest Expansion and Respiratory Effort, Clear to Auscultation Cardiovascular: RRR - Normal S1 and S2 Abdominal: - - Soft, mild RUQ tenderness, NG, NR, BS+ Neurological: Alert and Oriented x 3, NL Muscle Strength and Tone Result Diagrams: 08/25/18 07:23 08/25/18 07:23 Microbiology and Other Data: Microbiology 08/23/18 11:49 Aerobic Blood Culture - Preliminary Blood Venous Klebsiella Pneumoniae Anaerobic Blood Culture - Preliminary 08/23/18 11:49 Aerobic Blood Culture - Preliminary Blood Venous Klebsiella Pneumoniae Anaerobic Blood Culture - Preliminary Klebsiella Pneumoniae Assess/Plan/Problems-Billing Assessment: Mr Garcia is a 72yo M with PMH of HTN, HLD, GERD, CKD stage 3, who presented to ED with c/o abdominal pain; found to have cholelithiasis and cholangitis. - Patient Problems (1) Sepsis Comment: - Met sepsis criteria with fever and tachycardia. - Source is Klebsiella septicemia secondary to cholangitis. (2) Cholangitis Comment: - GB US showed cholelithiasis with dilated CBD up to 1.2cm. - MRCP showed no choledocolithiasis, but intra and extrahepatic ductal dilatation is present. I suspect he likely passed a stone; pancreatic lesion less likely, but not ruled out - CA 19-9 is 30. D/w GI - plan to pursue [address] abdome when renal function improved. - LFTs are trending down and clinically he seems to be improving. - Continue Zosyn. 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 - EKG shows no acute ischemic changes. - RCRI is 0, predicting 0.4-0.5% risk of cardiac complications. - Optimized for surgery, but would wait until repeat blood cultures are negative to pursue surgery. (3) Septicemia due to Klebsiella pneumoniae Comment: - All 4 bottles blood culture growing Klebsiella pneumoniae - d/w ID - agree with Zosyn and waiting for clear blood cultures prior to surgery. Would not recommend echocardiogram. - F/u repeat blood cultures. (4) Thrombocytopenia Comment: - Suspect secondary to sepsis - continue to monitor. (5) HTN (hypertension) Comment: - BP controlled - continue Atenolol. (6) DVT prophylaxis Comment: - SCDs for now, monitor platelets. (7) Full code status Status and Disposition: Inpatient. and daughter updated at bedside.
[2018-08-26] MEDS: Morphine INJ* 2 MG/ML 1 ML SYRINGE (TWO MG - NEW SYRINGE VERSION) IV PRN ×2 (06:38→17:56)
[2018-08-26 07:08] LABS: Hematocrit 32 % (42-52); Hemoglobin 11.7 g/dL (14.0-18.0); Mean Corpuscular HGB Conc 36 g/dL (31-36); Mean Corpuscular Hemoglobin 35 pg (27-31); Mean Corpuscular Volume 96 fL (80-94); Red Blood Count 3.37 10^6 /uL (4.18-5.48); Red Cell Distribution Width 13 % (10.5-15); White Blood Count 4.8 10^3/uL (3.5-10.8)
[2018-08-26 07:43] LABS: Albumin 3.1 g/dL (3.2-5.2); Albumin/Globulin Ratio 1.3 (1-3); BUN/Creatinine Ratio 15.9 (8-20); Calcium 8.3 mg/dL (8.6-10.3); EGFR African American 82.7 (>60); EGFR Non-African American 68.3 (>60); Globulin 2.3 g/dL (2-4); Potassium 3.7 mmol/L (3.5-5.0); Total Bilirubin 1.9 mg/dL (0.2-1.0); Total Protein 5.4 g/dL (6.4-8.9)
[2018-08-26] MEDS ORDERED: Buffered Lidocaine 1% SYRIN* 1 ML/SYRINGE INTRADERM ONE (09:19)
[2018-08-26] MEDS: Pantoprazole TAB * 40 MG TAB PO SCH (09:52)
[2018-08-26] MEDS: ZOSYN 3.375 GM Q8H per EXTENDED INFUSION IVPB SCH ×4 (09:52→17:56)
[2018-08-26] MEDS: Atenolol TAB* 25 MG PO SCH (09:52)
[2018-08-26] MEDS: Finasteride TAB* 5 MG PO SCH (09:52)
[2018-08-26 10:00] LABS: ABS Eosinophils 0.1 10^3/ul (0-0.6); ABS Lymphocytes 0.6 10^3/ul (1.0-4.8); ABS Monocytes 0.5 10^3/ul (0-0.8); ABS Neutrophils 3.6 10^3/ul (1.5-7.7); Eosinophil % 1.9 %; Lymphocyte % 12.9 %; Mean Platelet Volume 7.2 fL (7.4-10.4); Platelet Count 89 10^3/uL (150-450)
[2018-08-26] MEDS: NS 0.9% 1000 ML** 1,000 ML IV SCH (13:51)
--- NOTE | 2018-08-26 14:00 | PN ---
Subjective Date of Service: 08/26/18 Interval History: Pt still c/o mild intermittent pain in RUQ, tolerating clears today Family History: Unchanged from Admission Social History: Unchanged from Admission Past Medical History: Unchanged from Admission Objective Active Medications: Acetaminophen (Tylenol Tab*) 650 mg PO Q6H PRN PRN Reason: pain/fever Last Admin: 08/25/18 17:49 Dose: 650 mg Atenolol (Tenormin Tab*) 25 mg PO DAILY [facility] Last Admin: 08/26/18 09:52 Dose: 25 mg Finasteride (Proscar Tab*) 5 mg PO DAILY [facility] Last Admin: 08/26/18 09:52 Dose: 5 mg Piperacillin Sod/Tazobactam (Sod 3.375 gm/ Sodium Chloride) 100 mls @ 25 mls/ hr IVPB Q8H [facility] Last Admin: 08/26/18 09:52 Dose: 25 mls/hr Sodium Chloride (Ns 0.9% 1000 Ml) 1,000 mls @ 75 mls/hr IV PER RATE [facility] Last Admin: 08/26/18 13:51 Dose: 75 mls/hr Lactated Ringer's (Lactated Ringers 1000 Ml Bag*) 1,000 mls @ 125 mls/hr IV PER RATE [facility] Morphine Sulfate (Morphine Inj (Syringe))*) 2 mg IV Q4H PRN PRN Reason: PAIN - MILD Last Admin: 08/26/18 06:38 Dose: 2 mg Ondansetron HCl (Zofran Inj*) 4 mg IV Q6H PRN PRN Reason: NAUSEA/VOMITING Last Admin: 08/24/18 13:41 Dose: 4 mg Pantoprazole Sodium (Protonix Tab*) 40 mg PO DAILY [facility] Last Admin: 08/26/18 09:52 Dose: 40 mg Pharmacy Consult (Zosyn Per Pharmacy*) 1 note FOLLOW UP .ZOSYN PER PHARMACY [facility] Vital Signs - 8 hr 08/26/18 08/26/18 08/26/18 06:38 07:15 08:00 Temperature 98.2 F Pulse Rate 54 Respiratory 20 20 14 Rate Blood Pressure 127/56 (mmHg) O2 Sat by Pulse 92 Oximetry 08/26/18 08/26/18 08:26 11:15 Temperature 97.9 F Pulse Rate 55 Respiratory 12 16 Rate Blood Pressure 126/55 (mmHg) O2 Sat by Pulse 93 Oximetry Oxygen Devices in Use Now: None Appearance: 72 yo M inn NAD, aAOx3 Eyes: No Scleral Icterus, PERRLA Ears/Nose/Mouth/Throat: NL Teeth, Lips, Gums, Mucous Membranes Moist Neck: NL Appearance and Movements; NL JVP, Trachea Midline Respiratory: Symmetrical Chest Expansion and Respiratory Effort, Clear to Auscultation Cardiovascular: NL Sounds; No Murmurs; No JVD, RRR Abdominal: - - mild RUQ abd tenderness, no rebound, no guarding Lymphatic: No Cervical Adenopathy Extremities: No Edema, No Clubbing, Cyanosis Skin: No Rash or Ulcers, No Nodules or Sclerosis Neurological: Alert and Oriented x 3, NL Muscle Strength and Tone Result Diagrams: 08/26/18 06:36 08/26/18 06:36 Microbiology and Other Data: Microbiology 08/23/18 11:49 Aerobic Blood Culture - Preliminary Blood Venous Klebsiella Pneumoniae Anaerobic Blood Culture - Preliminary 08/23/18 11:49 Aerobic Blood Culture - Preliminary Blood Venous Klebsiella Pneumoniae Anaerobic Blood Culture - Preliminary Klebsiella Pneumoniae Assess/Plan/Problems-Billing Assessment: Mr Garcia is a 72yo M with PMH of HTN, HLD, GERD, CKD stage 3, who presented to ED with c/o abdominal pain; found to have cholelithiasis and cholangitis. - Patient Problems (1) Cholangitis Comment: - GB US showed cholelithiasis with dilated CBD up to 1.2cm. - MRCP showed no choledocolithiasis, but intra and extrahepatic ductal dilatation is present. I suspect he likely passed a stone; pancreatic lesion less likely, but not ruled out - CA 19-9 is 30. D/w GI - plan to pursue [address] abdomen when renal function improved. - LFTs are trending down and clinically he seems to be improving. - Continue Zosyn. 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 - EKG shows no acute ischemic changes. - RCRI is 0, predicting 0.4-0.5% risk of cardiac complications. - Optimized for surgery, but would wait until repeat blood cultures are negative to pursue surgery.Plan for OR tomorrow (2) HTN (hypertension) Comment: - BP controlled - continue Atenolol. (3) Sepsis Comment: - Met sepsis criteria with fever and tachycardia. - Source is Klebsiella septicemia secondary to cholangitis. (4) Septicemia due to Klebsiella pneumoniae Comment: - All 4 bottles blood culture growing Klebsiella pneumoniae - cont with Zosyn -repeat blood cultures so far negative prior to surgery (5) Thrombocytopenia Comment: - Suspect secondary to sepsis - continue to monitor. (6) DVT prophylaxis Comment: - SCDs for now, monitor platelets. Status and Disposition: Inpatient. and daughter updated at bedside.
[2018-08-27] MEDS: Morphine INJ* 2 MG/ML 1 ML SYRINGE (TWO MG - NEW SYRINGE VERSION) IV PRN ×3 (00:35→11:36)
[2018-08-27] MEDS: ZOSYN 3.375 GM Q8H per EXTENDED INFUSION IVPB SCH ×6 (00:36→16:49)
[2018-08-27] MEDS: NS 0.9% 1000 ML** 1,000 ML IV SCH (03:39)
[2018-08-27] MEDS: Atenolol TAB* 25 MG PO SCH (05:11)
[2018-08-27] MEDS: Pantoprazole TAB * 40 MG TAB PO SCH (05:11)
[2018-08-27] MEDS ORDERED: Lactated Ringers 1000 ML Bag* 1,000 ML IV SCH (06:00)
[2018-08-27 07:01] LABS: Hematocrit 32 % (42-52); Hemoglobin 11.3 g/dL (14.0-18.0); Mean Corpuscular HGB Conc 35 g/dL (31-36); Mean Corpuscular Hemoglobin 34 pg (27-31); Mean Corpuscular Volume 98 fL (80-94); Mean Platelet Volume 7.4 fL (7.4-10.4); Platelet Count 107 10^3/uL (150-450); Red Blood Count 3.28 10^6 /uL (4.18-5.48); Red Cell Distribution Width 13 % (10-15); White Blood Count 5.2 10^3/uL (3.5-10.8)
[2018-08-27] MEDS ORDERED: Buffered Lidocaine 1% SYRIN* 1 ML/SYRINGE INTRADERM ONE (07:20)
[2018-08-27 07:21] LABS: Albumin 3.2 g/dL (3.2-5.2); Albumin/Globulin Ratio 1.5 (1-3); BUN/Creatinine Ratio 14.9 (8-20); Calcium 8.2 mg/dL (8.6-10.3); EGFR African American 88.4 (>60); Globulin 2.1 g/dL (2-4); Potassium 3.7 mmol/L (3.5-5.0); Total Bilirubin 1.7 mg/dL (0.2-1.0); Total Protein 5.3 g/dL (6.4-8.9)
--- NOTE | 2018-08-27 07:41 | PN ---
Progress Note - Progress Note Date of Service: 08/27/18 SOAP: Subjective: Continues to feel better Some mild right upper abdominal pain Tolerating po Objective: Temp Pulse Resp BP Pulse Ox 98.6 F 60 18 135/54 90 08/27/18 03:12 08/27/18 03:59 08/27/18 05:09 08/27/18 03:12 08/27/18 03:12 PEX: Abd is soft and slightly distended. Bowel sounds are present. Very mild tenderness on deep palpation in the right upper quadrant, no mass Assessment: Cholelithiasis Cholangitis-resolved Labs noted He requires laparoscopic cholecystectomy for prevention of recurrent choledocholithiasis Plan: Laparoscopic cholecystectomy today. The procedure was discussed with the patient and his and the risks of, but not limited to, of bleeding, infection, common bile duct injury, injury to peritoneal and retroperitoneal structures, the possibility of an open procedure, drain placement, blood clots, bile leak and anesthetic risks were all explained. Their questions were answered.
[2018-08-27] MEDS ORDERED: Propofol* 10 MG/ML 20 ML BTL ONE (08:30)
[2018-08-27] MEDS ORDERED: Rocuronium* 10 MG/ML VIAL ONE (08:31)
[2018-08-27] MEDS ORDERED: Lidocaine 2% PF * 5 ML VIAL ONE (08:31)
[2018-08-27] MEDS ORDERED: fentaNYL* 50 MCG/ML 2 ML VIAL (100 MCG VIAL) ONE ×2 (08:33→10:56)
[2018-08-27] MEDS ORDERED: Bupivacaine 0.5% W/EPI SDV* 30 ML VIAL ONE (08:46)
[2018-08-27] MEDS ORDERED: Bupivacaine 0.25% SDV PF* 10 ML VIAL INJ ONE (08:46)
[2018-08-27] MEDS ORDERED: fentaNYL* 50 MCG/ML 2 ML VIAL (100 MCG VIAL) IV PRN (09:09)
[2018-08-27] MEDS ORDERED: DiMENhydriNATE IV* 50 MG/ML VIAL IV PUSH PRN (09:09)
[2018-08-27] MEDS ORDERED: Naloxone* 0.4 MG/ML 1 ML VIAL IV PRN (09:09)
[2018-08-27] MEDS ORDERED: Ketorolac INJ* 30 MG/ML 1 ML VIAL ONE (09:20)
[2018-08-27] MEDS ORDERED: Neostigmine Methylsulfate* 3 MG/3 ML SYRINGE ONE (09:45)
[2018-08-27] MEDS ORDERED: Glycopyrrolate IV* 0.2 MG/ML 1 ML VIAL ONE (09:45)
--- NOTE | 2018-08-27 10:01 | OP ---
Operative Report - Blank - Operative Report Date of Operation: 08/27/18 Note: Brief Operative Note Preop Dx: cholecystitis Postop Dx: same Procedure: laparoscopic cholecystectomy Anesthesia: GET Surgeon: Zulma Pattern Molder: BRENNAN Flores Fluids: 1000 ml RL EBL: < 100 ml Specimen: gallbladder Drains: none Findings: dictated
[2018-08-27] MEDS ORDERED: Furosemide IV* 10 MG/ML VIAL (40 MG) IV ONE (14:33)
--- NOTE | 2018-08-27 14:38 | PN ---
Subjective Date of Service: 08/27/18 Interval History: Pt has no major complaints, but noted to have increased WOB and requiting 02 post op Post op abd pain controlled Family History: Unchanged from Admission Social History: Unchanged from Admission Past Medical History: Unchanged from Admission Objective Active Medications: Atenolol (Tenormin Tab*) 25 mg PO 0900 [facility] Last Admin: 08/27/18 05:11 Dose: 25 mg Piperacillin Sod/Tazobactam (Sod 3.375 gm/ Sodium Chloride) 100 mls @ 25 mls/ hr IVPB Q8H [facility] Last Admin: 08/27/18 10:19 Dose: Not Given Sodium Chloride (Ns 0.9% 1000 Ml) 1,000 mls @ 75 mls/hr IV PER RATE [facility] Last Admin: 08/27/18 03:39 Dose: 75 mls/hr Morphine Sulfate (Morphine Inj (Syringe))*) 2 mg IV Q4H PRN PRN Reason: PAIN - MILD Last Admin: 08/27/18 11:36 Dose: 2 mg Ondansetron HCl (Zofran Inj*) 4 mg IV Q6H PRN PRN Reason: NAUSEA/VOMITING Last Admin: 08/24/18 13:41 Dose: 4 mg Oxycodone/Acetaminophen (Percocet 5/325 Tab*) 1 tab PO Q4H PRN PRN Reason: PAIN Pantoprazole Sodium (Protonix Tab*) 40 mg PO 0900 [facility] Last Admin: 08/27/18 05:11 Dose: 40 mg Pharmacy Consult (Zosyn Per Pharmacy*) 1 note FOLLOW UP .ZOSYN PER [facility]ACY [facility] Vital Signs - 8 hr 08/27/18 08/27/18 08/27/18 10:10 10:15 10:20 Temperature 98.1 F Pulse Rate 73 72 74 Respiratory 18 24 23 Rate Blood Pressure 142/70 137/72 148/71 (mmHg) O2 Sat by Pulse 93 93 95 Oximetry 08/27/18 08/27/18 08/27/18 10:25 10:30 10:45 Temperature Pulse Rate 73 68 56 Respiratory 25 20 21 Rate Blood Pressure 151/75 142/78 154/79 (mmHg) O2 Sat by Pulse 94 93 92 Oximetry 08/27/18 08/27/18 08/27/18 11:00 11:01 11:36 Temperature 98.1 F Pulse Rate 52 Respiratory 21 24 Rate Blood Pressure 155/76 (mmHg) O2 Sat by Pulse 96 Oximetry 08/27/18 08/27/18 08/27/18 11:41 11:43 12:38 Temperature 97.9 F 97.6 F Pulse Rate 55 52 Respiratory 22 22 20 Rate Blood Pressure 145/57 137/53 (mmHg) O2 Sat by Pulse 90 93 Oximetry 08/27/18 08/27/18 12:51 13:30 Temperature 98.6 F Pulse Rate 62 Respiratory 16 28 Rate Blood Pressure 143/61 (mmHg) O2 Sat by Pulse 93 Oximetry Oxygen Devices in Use Now: Nasal Cannula Appearance: 72 yo M in nAD, AAOx3 Eyes: No Scleral Icterus, PERRLA Ears/Nose/Mouth/Throat: NL Teeth, Lips, Gums, Mucous Membranes Moist Neck: Trachea Midline, - - JVD b/l Respiratory: - - rales b/l Abdominal: - - distended, BS hypoactive, mild tenderness sharonda incision sites( steri strpped) Lymphatic: No Cervical Adenopathy Extremities: No Edema Skin: No Rash or Ulcers, No Nodules or Sclerosis Neurological: Alert and Oriented x 3, NL Muscle Strength and Tone Result Diagrams: 08/27/18 06:32 08/27/18 06:32 Microbiology and Other Data: Microbiology 08/23/18 11:49 Aerobic Blood Culture - Preliminary Blood Venous Klebsiella Pneumoniae Anaerobic Blood Culture - Preliminary 08/23/18 11:49 Aerobic Blood Culture - Preliminary Blood Venous Klebsiella Pneumoniae Anaerobic Blood Culture - Preliminary Klebsiella Pneumoniae Assess/Plan/Problems-Billing Assessment: Mr Garcia is a 72yo M with PMH of HTN, HLD, GERD, CKD stage 3, who presented to ED with c/o abdominal pain; found to have cholelithiasis and cholangitis. - Patient Problems (1) Cholangitis Comment: - GB US showed cholelithiasis with dilated CBD up to 1.2cm. - MRCP showed no choledocolithiasis, but intra and extrahepatic ductal dilatation is present. I suspect he likely passed a stone; pancreatic lesion less likely, but not ruled out - CA 19-9 is 30. D/w GI - plan to pursue [address] abdomen when renal function improved. - LFTs are trending down , -s/p lap hernan today - Continue Zosyn. (2) HTN (hypertension) Comment: - BP controlled - continue Atenolol. (3) Sepsis Comment: - Met sepsis criteria with fever and tachycardia. - Source is Klebsiella septicemia secondary to cholangitis. (4) Septicemia due to Klebsiella pneumoniae Comment: - All 4 bottles blood culture growing Klebsiella pneumoniae - cont with Zosyn -repeat blood cultures so far negative prior to surgery (5) Thrombocytopenia Comment: - Suspect secondary to sepsis - continue to monitor. (6) Hypoxemia Comment: rales and JVD on exam -suspect fluid oveload tx with Lasix 40 mg stop IVF moitor weights (7) DVT prophylaxis Comment: - SCDs, start HSQ tonight Status and Disposition: Inpatient. and daughter updated at bedside.
[2018-08-27] MEDS: oxyCODONE/Acetamin 5/325 MG* TAB PO PRN ×2 (16:48→21:20)
--- NOTE | 2018-08-27 19:17 | OP ---
DATE OF OPERATION: 08/27/18 - ROOM #419 DATE OF : 49 SURGEON: Barry Maya MD MECHANICAL MAINTENANCE: BRENNAN Roach ANESTHESIOLOGIST: Dr. Garcia. ANESTHESIA: General with local. PRE-OP DIAGNOSIS: Cholelithiasis and acute cholangitis. POST-OP DIAGNOSES: 1. Cholelithiasis and acute cholangitis. 2. Acute calculus cholecystitis. OPERATIVE PROCEDURE: Laparoscopic cholecystectomy. ESTIMATED BLOOD LOSS: Minimal. IV FLUIDS: 1 L of crystalloid. SPECIMENS: Gallbladder. WOUND CLASSIFICATION: III. COMPLICATIONS: None. DRAINS: None. BRIEF HISTORY: Mr. Micheal Garcia is a 72-year-old gentleman who was admitted and treated for sepsis with blood cultures that were positive. He was noted to have elevated liver transaminases and total bilirubin as well as gallstones. He was thought to have cholangitis over an MRCP, showed dilated bile ducts, but no evidence of common duct stone or debris. His number is slightly improved and an ultrasound confirmed gallstones. It was assumed that he has passed a common bile duct stone and he is now to undergo cholecystectomy after he has been treated for positive blood cultures and has been doing well and recovering from sepsis. The procedure was discussed with the patient and his and the risks and benefits were all explained. DESCRIPTION OF PROCEDURE: Written informed consent was obtained, the abdomen was marked with indelible ink and preoperative antibiotics were administered. The patient was taken to the operating room and placed in the supine position. Sequential compression devices and warming blanket were applied. Time-out verification was completed. A vertical incision was made just above the umbilicus at the midline and the peritoneal cavity was entered under direct vision. A 12 mm blunt port was inserted and the abdomen was insufflated to 15 mmHg. Under direct vision, an 11 mm epigastric port was placed and two 5 mm ports were placed in the right side of the abdominal wall. The gallbladder was identified. There were some omental adhesions, which were taken down sharply. It was obvious that the gallbladder was mildly thickened and edematous consistent with acute calculus cholecystitis. The liver appeared to be unremarkable. The gallbladder was grasped and elevated up over the liver bed. With care, I was able to sweep down some edematous fatty tissue that was inherent to the gallbladder and exposed the infundibulum of the gallbladder. With care through somewhat inflamed edematous tissue likewise, the peritoneum along the medial and lateral aspects of the gallbladder was taken down. The cystic duct and artery were identified as they entered the gallbladder. I took a considerable portion of the inferior part of the gallbladder off the liver bed using a critical view technique to assure myself of these structures. The cystic duct was of expected normal caliber and appeared to contain no stones. It was triply clipped and divided and the cystic artery was also doubly clipped and divided. The gallbladder was then removed from the liver bed using cautery and placed in EndoCatch bag and brought out thorough the umbilical incision. The liver bed was then irrigated and hemostasis was assured. All ports were removed under direct vision of the camera and there was no abdominal wall bleeding. The midline supraumbilical incision was closed at the fascial level with several interrupted 0 Vicryl sutures. The skin and all 4 incisions was approximated with subcuticular 4-0 Vicryl suture. Steri-Strips were applied. The patient tolerated the procedure well, was taken to the recovery room in stable condition. [id number]/[facility] #: [id number] JUAQUIN
[2018-08-27] MEDS: Heparin VIAL(*) 5000 UNITS/ML VIAL (FIVE THOUSAND) SUBCUT SCH (21:22)
[2018-08-28] MEDS: ZOSYN 3.375 GM Q8H per EXTENDED INFUSION IVPB SCH ×6 (00:40→16:24)
[2018-08-28] MEDS: Morphine INJ* 2 MG/ML 1 ML SYRINGE (TWO MG - NEW SYRINGE VERSION) IV PRN (00:47)
--- NOTE | 2018-08-28 05:06 | PN ---
Progress Note - Progress Note Date of Service: 08/28/18 Note: Surgery Progress Note S: Patient says that he feels well. He has been ambulating. No nausea or emesis. Tolerating CLD. Has pain around incisions when moving but overall pain is well controlled. Has been on NC for decreased saturations. O: Vital Signs - 24 hr 08/27/18 08/27/18 08/27/18 05:09 10:10 10:15 Temperature 98.1 F Pulse Rate 73 72 Respiratory 18 18 24 Rate Blood Pressure 142/70 137/72 (mmHg) O2 Sat by Pulse 93 93 Oximetry 08/27/18 08/27/18 08/27/18 10:20 10:25 10:30 Temperature Pulse Rate 74 73 68 Respiratory 23 25 20 Rate Blood Pressure 148/71 151/75 142/78 (mmHg) O2 Sat by Pulse 95 94 93 Oximetry 08/27/18 08/27/18 08/27/18 10:45 11:00 11:01 Temperature 98.1 F Pulse Rate 56 52 Respiratory 21 21 Rate Blood Pressure 154/79 155/76 (mmHg) O2 Sat by Pulse 92 96 Oximetry 08/27/18 08/27/18 08/27/18 11:36 11:41 11:43 Temperature 97.9 F Pulse Rate 55 Respiratory 24 22 22 Rate Blood Pressure 145/57 (mmHg) O2 Sat by Pulse 90 Oximetry 08/27/18 08/27/18 08/27/18 12:38 12:51 13:30 Temperature 97.6 F 98.6 F Pulse Rate 52 62 Respiratory 20 16 28 Rate Blood Pressure 137/53 143/61 (mmHg) O2 Sat by Pulse 93 93 Oximetry 08/27/18 08/27/18 08/27/18 16:00 16:48 18:00 Temperature 99.1 F 98.0 F Pulse Rate 79 62 Respiratory 32 26 23 Rate Blood Pressure 155/75 150/55 (mmHg) O2 Sat by Pulse 93 93 Oximetry 08/27/18 08/27/18 08/27/18 19:23 19:33 21:20 Temperature 97.6 F Pulse Rate 55 Respiratory 20 16 18 Rate Blood Pressure 142/61 (mmHg) O2 Sat by Pulse 93 Oximetry 08/27/18 08/27/18 08/27/18 21:52 21:55 23:47 Temperature Pulse Rate Respiratory 20 20 18 Rate Blood Pressure (mmHg) O2 Sat by Pulse Oximetry 08/28/18 08/28/18 08/28/18 00:34 00:35 00:47 Temperature 97.8 F Pulse Rate 83 Respiratory 20 20 Rate Blood Pressure 156/68 (mmHg) O2 Sat by Pulse 99 94 Oximetry Laboratory Results - last 24 hr 08/27/18 08/27/18 08/27/18 06:12 06:32 06:32 WBC 5.2 RBC 3.28 L Hgb 11.3 L Hct 32 L MCV 98 H MCH 34 H MCHC 35 RDW 13 Plt Count 107 L MPV 7.4 Sodium 140 Potassium 3.7 Chloride 109 Carbon Dioxide 22 Anion Gap 9 BUN 15 Creatinine 1.01 Est GFR ( Amer) 88.4 Est GFR (Non-Af Amer) 73.0 BUN/Creatinine Ratio 14.9 Glucose 83 POC Glucose (mg/dL) 80 Calcium 8.2 L Total Bilirubin 1.70 H AST 50 H ALT 106 H Alkaline Phosphatase 22 L Total Protein 5.3 L Albumin 3.2 Globulin 2.1 Albumin/Globulin Ratio 1.5 Intake & Output 08/27/18 08/27/18 08/28/18 14:59 22:59 06:59 Intake Total 1620 240 Output Total 100 Balance 1520 240 Intake: IV Fluids 1500 40 LR 1500 NS (0.9%) 40 IVPB 200 ABX - ZOSYN 200 Oral 120 0 Output: Estimated Blood Loss 100 Other: Estimated Void Medium Medium # Bowel Movements 0 # Voids 2 1 1 Labs: 08/28 pending Physical exam: Abd- soft, somewhat distended, incisions c/d/i with steri strips in place, minimal tenderness around incisions A/P: 72 M POD 1 from laparoscopic cholecystectomy for cholangitis complicated by bacteremia - Patient tolerating CLD, will advance diet to soft - Patient continues to require supplemental O2 for hypoxia, received lasix yesterday per hospitalist service, weaning O2 and continued diuresis per hospitalist service - Most recent blood cultures negative, abx length and regimen per hospitalist team - Continue OOB and ambulating - Pain: percocet, morphine PRN - Ppx: HSQ, pepcid
[2018-08-28 06:05] LABS: Hematocrit 33 % (42-52); Hemoglobin 11.6 g/dL (14.0-18.0); Mean Corpuscular HGB Conc 36 g/dL (31-36); Mean Corpuscular Hemoglobin 35 pg (27-31); Mean Corpuscular Volume 97 fL (80-94); Platelet Count 142 10^3/uL (150-450); Red Blood Count 3.36 10^6 /uL (4.18-5.48); Red Cell Distribution Width 13 % (10-15)
[2018-08-28 06:23] LABS: BUN/Creatinine Ratio 12.6 (8-20); Calcium 8.4 mg/dL (8.6-10.3); EGFR African American 86.4 (>60); EGFR Non-African American 71.4 (>60); Potassium 3.4 mmol/L (3.5-5.0)
[2018-08-28] MEDS: Heparin VIAL(*) 5000 UNITS/ML VIAL (FIVE THOUSAND) SUBCUT SCH ×3 (06:38→21:12)
[2018-08-28] MEDS: oxyCODONE/Acetamin 5/325 MG* TAB PO PRN ×3 (06:38→22:51)
[2018-08-28] MEDS: Atenolol TAB* 25 MG PO SCH (09:02)
[2018-08-28] MEDS: Pantoprazole TAB * 40 MG TAB PO SCH (09:02)
[2018-08-28] MEDS: KCL 20 MEQ/100 ML IVPREMIX* 20 MEQ/100 ML BAG IV SCH ×2 (09:03→11:21)
--- NOTE | 2018-08-28 14:26 | PN ---
Subjective Date of Service: 08/28/18 Interval History: Pt feels well. Diet advanced to soft. Just got off and is on RA now. Post op pain well controlled Family History: Unchanged from Admission Social History: Unchanged from Admission Past Medical History: Unchanged from Admission Objective Active Medications: Atenolol (Tenormin Tab*) 25 mg PO 0900 [facility] Last Admin: 08/28/18 09:02 Dose: 25 mg Heparin Sodium (Porcine) (Heparin Vial(*)) 5,000 units SUBCUT Q8HR [facility] Last Admin: 08/28/18 13:39 Dose: 5,000 units Piperacillin Sod/Tazobactam (Sod 3.375 gm/ Sodium Chloride) 100 mls @ 25 mls/ hr IVPB Q8H [facility] Last Admin: 08/28/18 09:03 Dose: 25 mls/hr Sodium Chloride (Ns 0.9% 1000 Ml) 1,000 mls @ 75 mls/hr IV PER RATE [facility] Last Admin: 08/27/18 03:39 Dose: 75 mls/hr Morphine Sulfate (Morphine Inj (Syringe))*) 2 mg IV Q4H PRN PRN Reason: PAIN - MILD Last Admin: 08/28/18 00:47 Dose: 2 mg Ondansetron HCl (Zofran Inj*) 4 mg IV Q6H PRN PRN Reason: NAUSEA/VOMITING Last Admin: 08/24/18 13:41 Dose: 4 mg Oxycodone/Acetaminophen (Percocet 5/325 Tab*) 1 tab PO Q4H PRN PRN Reason: PAIN Last Admin: 08/28/18 06:38 Dose: 1 tab Pantoprazole Sodium (Protonix Tab*) 40 mg PO 0900 [facility] Last Admin: 08/28/18 09:02 Dose: 40 mg Pharmacy Consult (Zosyn Per Pharmacy*) 1 note FOLLOW UP .ZOSYN PER PHARMACY [facility] Vital Signs - 8 hr 08/28/18 08/28/18 08/28/18 06:38 09:21 09:47 Temperature Pulse Rate Respiratory 20 18 18 Rate Blood Pressure (mmHg) O2 Sat by Pulse 94 Oximetry 08/28/18 12:29 Temperature 97.3 F Pulse Rate 59 Respiratory 18 Rate Blood Pressure 150/60 (mmHg) O2 Sat by Pulse 94 Oximetry Oxygen Devices in Use Now: None Appearance: 72 yo m in nAD, aAOx3 Eyes: No Scleral Icterus, PERRLA Ears/Nose/Mouth/Throat: NL Teeth, Lips, Gums, Mucous Membranes Moist Neck: NL Appearance and Movements; NL JVP, No Thyroid Enlargement, Masses Respiratory: Symmetrical Chest Expansion and Respiratory Effort, Clear to Auscultation Cardiovascular: NL Sounds; No Murmurs; No JVD, RRR Abdominal: - - distended, soft, mildy tender sharonda-incision sites, incisons steri -stripped, no evidence of dehiscence or infection Lymphatic: No Cervical Adenopathy Extremities: No Edema Skin: No Nodules or Sclerosis Neurological: Alert and Oriented x 3 Result Diagrams: 08/28/18 05:46 08/28/18 05:46 Microbiology and Other Data: Microbiology 08/23/18 11:49 Aerobic Blood Culture - Preliminary Blood Venous Klebsiella Pneumoniae Anaerobic Blood Culture - Preliminary 08/23/18 11:49 Aerobic Blood Culture - Preliminary Blood Venous Klebsiella Pneumoniae Anaerobic Blood Culture - Preliminary Klebsiella Pneumoniae Assess/Plan/Problems-Billing Assessment: Mr Garcia is a 72yo M with PMH of HTN, HLD, GERD, CKD stage 3, who presented to ED with c/o abdominal pain; found to have cholelithiasis and cholangitis. - Patient Problems (1) Cholangitis Comment: - GB US showed cholelithiasis with dilated CBD up to 1.2cm. - MRCP showed no choledocolithiasis, but intra and extrahepatic ductal dilatation is present. I suspect he likely passed a stone; pancreatic lesion less likely, but not ruled out - CA 19-9 is 30. D/w GI - will order [address] abdomen today - s/p lap cholecystectomy 08/27/18 -cont zosyn -plan to d/c home on Cefdinir to complete 10 days tx. (2) HTN (hypertension) Comment: - BP controlled - continue Atenolol. (3) Sepsis Comment: - Met sepsis criteria with fever and tachycardia. - Source is Klebsiella septicemia secondary to cholangitis. (4) Septicemia due to Klebsiella pneumoniae Comment: - All 4 bottles blood culture growing Klebsiella pneumoniae - cont with Zosyn -repeat blood cultures so far negative (5) Thrombocytopenia Comment: - Suspect secondary to sepsis - continue to monitor. (6) Hypoxemia Comment: rales and JVD on exam 08/27/28, now on RA fter Lasix IV post op. cont to monitor one more night off 02. (7) DVT prophylaxis Comment: - HSQ tonight Status and Disposition: Inpatient.
[2018-08-28] MEDS ORDERED: Iohexol 300* (CONTRAST) 10 ML SDV IV ONE (14:54)
[2018-08-29] MEDS: ZOSYN 3.375 GM Q8H per EXTENDED INFUSION IVPB SCH ×4 (02:04→09:11)
[2018-08-29] MEDS: Heparin VIAL(*) 5000 UNITS/ML VIAL (FIVE THOUSAND) SUBCUT SCH (05:44)
[2018-08-29 08:08] VITALS: BP 142/58
[2018-08-29] MEDS: Atenolol TAB* 25 MG PO SCH (09:30)
[2018-08-29] MEDS: Pantoprazole TAB * 40 MG TAB PO SCH (09:30)
--- NOTE | 2018-08-29 12:32 | DS ---
CC: Dr. Esquivel; Dr. Maya from Surgery * DISCHARGE SUMMARY: DATE OF ADMISSION: 08/23/18 DATE OF DISCHARGE TO HOME: 08/29/18 PRIMARY CARE PROVIDER: Dr. Esquivel. CONDITION ON DISCHARGE: Stable. DISPOSITION AT DISCHARGE: To home. DISCHARGE DIAGNOSES: 1. Acute cholecystitis and cholangitis complicated by Klebsiella pneumoniae septicemia with bacteremia, status post laparoscopic cholecystectomy performed by Dr. Maya on 08/27/18. 2. Postoperative fluid overload. The patient was treated with a dose of intravenous Lasix with good results. SECONDARY DIAGNOSES: 1. History of hypertension. 2. Hyperlipidemia. 3. Gastroesophageal reflux disease. MEDICATIONS AT DISCHARGE: Include: 1. Cefdinir 300 mg p.o. b.i.d. for total of 5 days and then stop, to complete a total of 10-day treatment for klebsiella bacteremia. 2. Atenolol 25 mg daily. 3. Fenofibrate 150 mg daily. 4. Proscar 5 mg daily. 5. Lisinopril 20 mg daily. 6. Niacin 500 mg daily. 7. Omeprazole 20 mg daily. 8. Oxycodone/acetaminophen 5/325 mg 1 tablet every 6 hours p.r.n. FOLLOWUP APPOINTMENTS: The patient is to call Dr. Maya's office and make an appointment in a week. The patient also asked to see Dr. Esquivel, his primary care provider, in 4 to 7 days post hospital stay. In regard to specific diet as well as postoperative instructions in regard to physical activity, please see printed instructions in patient's discharge pocket as prescribed by Dr. Maya. LABORATORY DATA AND STUDIES PERFORMED DURING THE HOSPITAL STAY: Included: On , white blood cell count of 6.0, hemoglobin 11.6, hematocrit 33, platelets of 142. Sodium was 139, potassium 3.4, chloride 104, carbon dioxide 22, BUN 13, creatinine 1.03. Gallbladder ultrasound obtained on 08/23/18. Impression: "Cholelithiasis without evidence of acute cholecystitis. Dilated common bile duct. This can be fully evaluated with MRCP study. Findings suggestive of fatty infiltration of the liver." MRCP performed on 08/23/18. Impression: "Cholelithiasis without evidence of choledocholithiasis. There was intra and extrahepatic ductal distension. Recommend a 3-phase CT of the abdomen to exclude any malignant pancreatic lesion. Several small cystic pancreatic lesions favoring intraductal papillary mucinous neoplasm. Recommended a followup study in 1 year to demonstrate stability. Small complex hepatic cyst." Portable chest x-ray obtained on 08/23/18: Impression: "No evidence of acute intrathoracic disease." CT of the abdomen and pelvis obtained on 08/28/18 that was postoperative: Impression: "Small bilateral pleural effusions. Status post recent cholecystectomy. There was fluid within the gallbladder fossa extending to the retroperitoneum, most consistent with postsurgical changes. Intra and extrahepatic ductal distension unchanged. No pancreatic lesion is seen. Probable nonobstructing right renal calculus." PROCEDURES AND CONSULTATIONS PERFORMED: Surgical procedure performed by Dr. Maya on 08/27/18 and that was laparoscopic cholecystectomy. Pathology of the gallbladder is still pending at the time of this dictation. HOSPITALIZATION COURSE: Micheal Garcia is a 72-year-old male with history of hypertension who presented to the hospital on 08/23/18 with complaints of abdominal pain. The patient was noted to have cholelithiasis, but no cholecystitis. His liver function tests were markedly elevated at admission including bilirubin. His bilirubin was 4.2. The patient's AST and ALT were in the 100 to 200 range. The patient was noted to be septic at admission and blood cultures were positive for Klebsiella pneumoniae. Repeat blood cultures performed 2 days later were already negative. The patient was treated with Zosyn through his hospital stay for klebsiella bacteremia likely related to cholangitis. Subsequent MRCP fails to demonstrate any obstruction and the thought was that the patient likely already passed the stone. That was also supported by a gradually decreasing liver function studies elevation. Due to that, the patient underwent laparoscopic cholecystectomy by Dr. Maya on 10/08 with short episode of fluid overload postoperatively treated with IV Lasix. Postoperatively, the patient also had a CT of the abdomen obtained as was recommended by the radiologist, a 3-phase pancreatic CT to evaluate to rule out a mass, which was negative for pancreatic mass. By the time of discharge, the patient is on room air, has minimal abdominal pain, and he is going to be discharged to follow up with Dr. aMya and his primary care provider as mentioned above. PHYSICAL EXAMINATION: At the time of discharge, blood pressure 142/58, heart rate of 51 and regular, respiratory rate 16, oxygen saturation 95% on room air, temperature 97.7. General: The patient is a pleasant 72-year-old male who is in no acute distress, alert, awake and oriented x3. HEENT: Head atraumatic, normocephalic. Eyes: Pupils equal, reactive to light and accommodation. Oropharynx is clear. Mucosa is moist. Neck: Supple. No JVD. No bruits bilaterally. Cardiovascular: Regular rate and rhythm. No murmur. Respiratory : Clear to auscultation bilaterally. Abdomen: Slightly distended, soft, minimally tender in the sharonda-incision site with no rebound, no guarding and bowel sounds present in all 4 quadrants. The areas of operative incisions are steri-stripped with no evidence of dehiscence or cellulitis. Extremities: There is no edema. Pulses 2+ bilaterally. No clubbing or cyanosis. On evaluation of the skin, further apart from the ones mentioned in the incision site and abdomen, no other abnormalities noted. CONDITION AT DISCHARGE: Stable. DISPOSITION AT DISCHARGE: To home. Please note that this is a short summary of the patient's hospital stay. Please refer to further medical records for details. TIME SPENT: Approximately 45 minutes was spent on patient's discharge. [id number]/CPS #: [id number] MTDD
== END 2018-08-29 10:15 | disposition home or self-care (01) | DRG 854 ==
LOC: ED 08:31 → MED 13:28 → OBSVTOIN 08-24 12:55
PROVIDERS: ADMIT Hospitalist; ATTEND Internal Medicine
PROC: 0FT44ZZ Resection of Gallbladder, Percutaneous Endoscopic Approach (ICD-10-PCS; principal; 2018-08-27 08:30)
DX: A41.59 Other Gram-negative sepsis (principal); K83.09 Other cholangitis; K80.00 Calculus of gallbladder with acute cholecystitis without obstruction; K86.2 Cyst of pancreas; J90 Pleural effusion, not elsewhere classified; E78.5 Hyperlipidemia, unspecified; K21.9 Gastro-esophageal reflux disease without esophagitis; K83.8 Other specified diseases of biliary tract; D69.6 Thrombocytopenia, unspecified; N18.3 Chronic kidney disease, stage 3 (moderate); I12.9 Hypertensive chronic kidney disease with stage 1 through stage 4 chronic kidney disease, or unspecified chronic kidney disease; R09.02 Hypoxemia; E87.79 Other fluid overload; K76.89 Other specified diseases of liver; Z82.49 Family history of ischemic heart disease and other diseases of the circulatory system; Z83.3 Family history of diabetes mellitus; Z80.0 Family history of malignant neoplasm of digestive organs; Z80.42 Family history of malignant neoplasm of prostate; Z80.1 Family history of malignant neoplasm of trachea, bronchus and lung; Z72.89 Other problems related to lifestyle
CPT/HCPCS: 36415; 71046; 74178; 74181; 76376; 76705; 80048; 80053; 80076; 81003; 83605; 83690; 84484; 85025; 85027; 85060; 86140; 86301; 87040; 87077; 87186; 87205; 88304; 93005; 99284; A9270-GY; G0378; J1644; J1885; J1940; J2270; J2405; J2543; J2704; J2710; J3010; J3480; J3490; Q9967